=== PATIENT | female | born 1950 | race Caucasian/White ===

== ENCOUNTER 2019-10-26 15:42 | Inpatient (IN) ==
[2019-10-26] MEDS ORDERED: DILTIAZEM 25 MG/5 ML VIAL IV ONE (15:57)
--- NOTE | 2019-10-26 16:01 | Emergency Department Note ---
Arrhythmia/Palpitations HPI - General Chief Complaint: Arrhythmia/Palpitations Stated Complaint: irregular heart beat, cellulitis Time Seen by Provider: 10/26/19 15:57 Source: patient Mode of arrival: wheelchair Limitations: no limitations - History of Present Illness HPI Narrative: 69-year-old female presents with tachycardia, some mild shortness of breath with exertion, and significant pedal edema. States onset 6 days ago. She went to her primary care providers today because of the increasing edema but now goes all the way up to her abdomen and her primary care provider sent her to the ER due to a heart rate in the 140s in A. fib. States she has had A. fib off and on for the last 6 months. Does not believe that she is on any oral medications for it. She has however poor historian. No cough or cold symptoms. No fever or chills. No nausea, vomiting, or diarrhea. States she does not really get shortness of breath unless he is she exerts herself. She always has some pedal edema but it is much greater and increasing over the last 6 days and she is never had edema that so severe that it goes up to her abdomen. States she thinks she is gained about 50 pounds in the last week or 2. - Related Data Home Medications Medication Instructions Recorded Confirmed HYDROcodone/APAP 5/325MG 1 tab PO DAILY 10/26/19 10/26/19 Lisinopril 1 tab PO DAILY 10/26/19 10/26/19 traZODone HCL 50 mg PO HS 10/26/19 10/26/19 Allergies Allergy/AdvReac Type Severity Reaction Status Date / Time Sulfa (Sulfonamide Allergy Intermediate Unknown Verified 10/26/19 15:53 Antibiotics) No Known Allergies Allergy Verified 10/26/19 15:50 Review of Systems All systems ED: reviewed and negative except as stated. Past Medical History - Past Medical History Medical history: Reports: atrial fibrillation, CHF, obesity, other (Cellulitis, vaginal prolapse, short OH interval, PAC, long-term opioid therapy, peripheral vascular insufficiency, chronic peripheral edema) Surgical history ED: Reports: herniorrhaphy, tonsillectomy - Social History smoking status: Never smoker Alcohol use: Reports: Rarely Drug use: Reports: none Physical Exam Limitations: no limitations General appearance: alert, other (Speaking in full sentences. She does get short of breath with movement such as getting up to the bed.) Head: atraumatic, normocephalic, normal inspection Eye: Present: normal appearance. Absent: conjunctival injection ENT: Present: mucous membranes moist Neck: Present: normal inspection. Absent: trachea midline, tenderness, lymphadenopathy Chest: Present: symmetric chest wall rise Respiratory: Present: other (Lung sounds diminished in the bases bilaterally otherwise clear throughout). Absent: respiratory distress, rales/crackles, a ccessory muscle use Cardiovascular: Present: irregular rhythm, other (Atrial fibrillation in the 140s on arrival). Absent: systolic murmur, diastolic murmur Abdominal: Present: soft, normal bowel sounds, other (Edema throughout the lower part of the abdomen and extending into the legs.). Absent: tenderness, guarding Extremities: Absent: normal inspection (2+ pitting edema throughout the lower extremities bilaterally extending up into the lower abdomen) Neurological: Present: alert, oriented X3 Psychiatric: Present: normal affect, normal mood Skin: Present: warm, dry, intact Course Course Narrative: @1640, no change with cardizem bolus of 20 mg. rate still 130s to 140s a-fib. Cardizem drip started. and 40 mg lasix iv @1745 Dr. Peters agrees to accept pt. Vital Signs Temperature 97.8 F 10/26/19 15:43 Pulse Rate 146 H 10/26/19 15:43 Respiratory Rate 25 H 10/26/19 15:43 Blood Pressure 142/116 10/26/19 15:43 Pulse Oximetry (%) 97 10/26/19 15:43 Temperature 97.8 F 10/26/19 15:43 Pulse Rate 122 H 10/26/19 17:16 Respiratory Rate 16 10/26/19 17:16 Blood Pressure 116/67 10/26/19 17:16 Pulse Oximetry (%) 98 10/26/19 17:16 Arrhythmia/Palpitations - Lab Data Result diagrams: 10/26/19 16:05 10/26/19 16:05 Lab Results 10/26/19 10/26/19 10/26/19 Range/Units 16:05 16:05 16:05 WBC 6.7 (4.50-11.00) K/mcL RBC 3.78 (3.59-5.38) M/mcL Hgb 12.2 (11.2-15.7) g/dL Hct 36.2 (34.1-44.9) % POC Hct 37.0 (36.0-48.0) % MCV 95.8 (80.0-100.0) fL MCH 32.3 (26.0-34.0) pg MCHC 33.7 (31.0-36.0) g/dL RDW 15.9 H (11.5-14.5) % Plt Count 127 L (140-440) K/mcL MPV 11.7 H (7.4-10.4) fL Gran % 54.0 (38.0-78.0) % Lymph % (Auto) 29.5 (15.5-49.0) % [place] % (Auto) 15.8 H (1.0-12.0) % Eos % (Auto) 0.3 (0.0-7.0) % Baso % (Auto) 0.4 (0.0-2.0) % Gran # 3.63 (1.80-8.00) K/mcL Lymph # (Auto) 1.98 (1.50-4.80) K/mcL [place] # (Auto) 1.06 H (0.10-0.90) K/mcL Eos # (Auto) 0.02 (0.00-0.70) K/mcL Baso # (Auto) 0.03 (0.00-0.30) K/mcL POC Sodium 138 (133-145) mmol/L Sodium 136 (133-145) mmol/L POC Potassium 3.4 (3.3-5.1) mmol/L Potassium 3.5 (3.3-5.1) mmol/L POC Chloride 100 (96-108) mmol/L Chloride 97 (96-108) mmol/L Carbon Dioxide 23 (22-30) mmol/L POC Total CO2 25 (22-30) mmol/L Anion Gap 16.0 (8-16) POC BUN 20 (8-23) mg/dl BUN 20 (8-23) mg/dl Creatinine 0.9 (0.6-1.1) mg/dl POC Creatinine 0.8 (0.6-1.1) mg/dl GFR Calculation 65 Glucose 125 H (70-105) mg/dL POC Glucose 123 H (70-105) mg/dL Calcium 9.0 (8.6-10.4) mg/dl POC WB Ioniz Calcium 1.06 L (1.16-1.32) mmol/L Total Bilirubin 0.9 (0.0-1.0) mg/dL AST 27 (0-37) U/l ALT 15 (0-40) U/l Alkaline Phosphatase 66 (39-117) U/L Troponin T < 0.01 (0-0.03) ng/ml NT-Pro-B Natriuret Pep 3573.0 H (0-125) pg/ml Total Protein 6.8 (5.9-8.4) gm/dL Albumin 3.6 (3.2-5.2) gm/dL Globulin 3.2 (2.2-3.7) gm/dL Albumin/Globulin Ratio 1.1 (1.0-2.3) Disposition Pt seen by GEOMAGNETICIAN/PA only: No Clinical Impression: Atrial fibrillation, Pedal edema, Bilateral lower extremity edema Disposition: Xfer As Inpt ([facility]) Condition: Fair Referrals: Yvonne Leonardo ARNP [Primary Care Provider] - Time of Disposition: 00:12
[2019-10-26 16:11] LABS: POC Blood Urea Nitrogen 20 mg/dl (8-23); POC CO2 25 mmol/L (22-30); POC Calcium, Ionized 1.06 mmol/L (1.16-1.32); POC Chloride 100 mmol/L (96-108); POC Creatinine 0.8 mg/dl (0.6-1.1); POC Glucose, Random 123 mg/dL (70-105); POC Potassium 3.4 mmol/L (3.3-5.1); POC Sodium 138 mmol/L (133-145)
--- NOTE | 2019-10-26 16:14 | XRay Report ---
CLINICAL INFORMATION:Dysrhythmia TECHNIQUE: AP portable semiupright chest x-ray COMPARISON: None FINDINGS: Lungs:Lungs are negative. No focal pulmonary parenchymal infiltrate or mass Heart, vascular:There is cardiomegaly. Pulmonary vascularity is normal. No pulmonary edema or pulmonary congestion Mediastinum, imchael:No mediastinal widening. No hilar mass Pleura:No pleural fluid. No pleural-based mass or calcification Skeletal: Degenerative disease in the acromioclavicular joints bilaterally. There is severe descent during of both humeral heads consistent with rotator cuff degeneration IMPRESSION: 1. Cardiomegaly 2. Otherwise negative chest x-ray. No acute abnormality Interpreted and Authenticated by: Joe Ruby 10/26/19
[2019-10-26 16:31] LABS: Basophils # (Auto) 0.03 K/mcL (0.00-0.30); Basophils % (Auto) 0.4 % (0.0-2.0); Eosinophils # (Auto) 0.02 K/mcL (0.00-0.70); Eosinophils % (Auto) 0.3 % (0.0-7.0); Hematocrit 36.2 % (34.1-44.9); Hemoglobin 12.2 g/dL (11.2-15.7); Lymphocytes # (Auto) 1.98 K/mcL (1.50-4.80); Lymphocytes % (Auto) 29.5 % (15.5-49.0); Mean Cell Volume 95.8 fL (80.0-100.0); Mean Corpuscular HGB Conc 33.7 g/dL (31.0-36.0); Mean Platelet Volume 11.7 fL (7.4-10.4); Monocytes # (Auto) 1.06 K/mcL (0.10-0.90); Monocytes % (Auto) 15.8 % (1.0-12.0); RBC 3.78 M/mcL (3.59-5.38); Red Cell Distribution Width 15.9 % (11.5-14.5); WBC 6.7 K/mcL (4.50-11.00)
[2019-10-26] MEDS ORDERED: FUROSEMIDE 40 MG/4 ML VIAL IV ONE ×2 (16:39→22:49)
[2019-10-26] MEDS ORDERED: DILTIAZEM 125 MG in DEXTROSE 5% IN WATER 100 ML IV SCH (16:45)
[2019-10-26 16:50] LABS: ALT/SGPT 15 U/l (0-40); AST/SGOT 27 U/l (0-37); Albumin 3.6 gm/dL (3.2-5.2); Albumin/Globulin Ratio 1.1 (1.0-2.3); Alkaline Phosphatase 66 U/L (39-117); Bilirubin,Total 0.9 mg/dL (0.0-1.0); Blood Urea Nitrogen 20 mg/dl (8-23); Carbon Dioxide 23 mmol/L (22-30); Chloride 97 mmol/L (96-108); Globulin 3.2 gm/dL (2.2-3.7); Glomerular Filtration Rate 65; Glucose 125 mg/dL (70-105)
[2019-10-26] MEDS ORDERED: LORazepam 2 MG/ML VIAL IV ONE (17:06)
[2019-10-26 17:20] LABS: Platelet Count 127 K/mcL (140-440)
--- NOTE | 2019-10-26 17:45 | Internal Med History&Physical ---
Medical - H&P: [facility] Patient information: Note initiated : 10/26/19 at 5:45 pm Service Date, if different from initiated Date: [] Patient: Jessie Khan a 69 y/o F admitted on for Irregular Heart Beat, Cellulitis. Chief Complaint: [] Chief complaint: + History of present illness: Ms. Khan is a 69 year old F with history of morbid obesity/HTN/anasarca who presents with increasing shortness of breath, weakness malaise and over 50 pound weight gain in the last 4 to 5 weeks. Patient symptoms have progressed from dyspnea on exertion to dyspnea at rest. With increasing concerns she was e valuated at primary care physician office and was subsequently directed to ER for further evaluation of anasarca/atrial fibrillation with heart rate over 140. On arrival patient was found to be in A. fib RVR and subsequently diltiazem drip was initiated. Work-up was consistent with CHF with a BNP of 3573/anasarca. Hospital service was consulted in light of A. fib RVR/CHF. Patient BMI 65. She lives along with her brother and has been independent until development of the symptoms over the last 5 weeks. She denies travel outside night states, sick contacts, excessive salt intake, NSAID intake. She denies missing her regular medications. She was recently started on Lasix and has taken 2 doses without relief. She denies fever, diarrhea, dysuria, headache, photophobia, cough, palpitations Review of systems 10 point review system was performed and is negative except for ones cussed above Medical - H&P: PMH Medical history: Hypertension Morbid obesity Anasarca Venous stasis Pertinent family history: Nonremarkable Social history: No history of smoking or alcoholism Lives with brother Medical - H&P: Meds Home Medications Medication Instructions Recorded Confirmed Type Furosemide [Lasix] 20 mg PO DAILY 10/26/19 10/26/19 History HYDROcodone/APAP 5/325MG [[place] 2 tab PO QHS 10/26/19 10/26/19 History 5-325Mg] Lisinopril/Hydrochlorothiazide 1 each PO QAM 10/26/19 10/26/19 History [Lisinopril-Hctz 20-12.5 mg Tab] Potassium Chloride [Klor-Con M20] 20 meq PO QAM 10/26/19 10/26/19 History traZODone HCL [Desyrel] 4 tab PO HSP PRN 10/26/19 10/26/19 History Allergies Allergy/AdvReac Type Severity Reaction Status Date / Time Sulfa (Sulfonamide Allergy Intermediate Unknown Verified 10/26/19 15:53 Antibiotics) No Known Allergies Allergy Verified 10/26/19 15:50 Medical - H&P: Exam - Constitutional Vitals: Temp Pulse Resp BP Pulse Ox 97.8 F 122 H 16 116/67 98 10/26/19 15:43 10/26/19 17:16 10/26/19 17:16 10/26/19 17:16 10/26/19 17:16 General appearance: morbidly obese Exam: Head normocephalic Oral cavity dry No ear nose discharge Neck no lymphadenopathy Nonlabored breathing Telemetry A. fib RVR currently rate around 110 abdomen pendulous/extensive pannus Lower extremity lymphedema from foot up to mid thigh with significant stasis changes mid leg downwards Skin no suspicious lesion Psych alert cooperative Neuro nonfocal Medical - H&P: Reslt - Labs CBC & Chem 7: 10/26/19 16:05 10/26/19 16:05 Labs: Short CBC 10/26/19 Range/Units 16:05 WBC 6.7 (4.50-11.00) K/mcL Hgb 12.2 (11.2-15.7) g/dL Hct 36.2 (34.1-44.9) % Plt Count 127 L (140-440) K/mcL BMP 10/26/19 16:05 Sodium 136 Potassium 3.5 Chloride 97 Carbon Dioxide 23 BUN 20 Creatinine 0.9 Glucose 125 H Calcium 9.0 Cardiac Enzymes 10/26/19 Range/Units 16:05 Troponin T < 0.01 (0-0.03) ng/ml Liver Function 10/26/19 Range/Units 16:05 Total Bilirubin 0.9 (0.0-1.0) mg/dL AST 27 (0-37) U/l ALT 15 (0-40) U/l Alkaline Phosphatase 66 (39-117) U/L Albumin 3.6 (3.2-5.2) gm/dL Medical - H&P: A/P (1) Atrial fibrillation with RVR Current visit: Yes Status: Acute * Atrial fibrillation with RVR-continue rate control measures including diltiazem. Chads score over 2 mandating anticoagulation. Transition to oral rate control measures. Check echocardiogram to evaluate chamber size/valvular abnormality * Acute decompensated heart failure secondary to diastolic dysfunction from A. fib RVR. Aggressive rate control/diuresis * Anasarca-aggressive diuresis. Echocardiogram * History of hypertension restart home medications * Morbid obesity continue directed therapy/nutrition support * Full code * Prophylaxis heparin Plan * Inpatient admission * Rate control measures * CHF management per protocol * Pre-existing medical condition management home meds * Discharge planning
[2019-10-26 19:34] LABS: Appearance,Urine CLEAR; Bacteria,Urine 0 /hpf (0); Bilirubin,Urine NEG (NEG); Color,Urine YELLOW; Culture Indicated,Urine NO; Glucose,Urine (UA) NEGATIVE (NEG); Ketones,Urine NEG (NEG); Leukocyte Esterase,Urine 25 /uL (NEG); Mucus,Urine FEW /hpf (0); Nitrate,Urine NEG (NEG); Protein,Urine 30 mg/dL (NEG); Specific Gravity,Urine 1.011 (1.000-1.035); Urine Blood NEG mg/dL (<0.03); Urine Hyaline Cast 7 /lpf (0-2); Urine RBC 1 /hpf (0-1); Urine Squamous Epithelial Cell 2 /hpf (0-4); Urine WBC 3 /hpf (0-4); Urobilinogen,Urine NEG (NEG)
[2019-10-26] MEDS ORDERED: MAGNESIUM SULFATE 2 GM/50 ML BAG IV PRN (19:36)
[2019-10-26] MEDS ORDERED: BISACODYL 10 MG SUPP.RECT PR PRN (19:36)
[2019-10-26] MEDS ORDERED: MELATONIN 3 MG TABLET PO PRN (19:36)
[2019-10-26] MEDS ORDERED: ACETAMINOPHEN 650 MG/65 ML BOTTLE IV PRN (19:36)
[2019-10-26] MEDS ORDERED: ONDANSETRON 4 MG ODT TABLET SL PRN (19:36)
[2019-10-26] MEDS ORDERED: ACETAMINOPHEN 325 MG TABLET PO PRN (19:36)
[2019-10-26] MEDS ORDERED: POTASSIUM CHLORIDE 20 MEQ PACKET PO PRN (19:36)
[2019-10-26] MEDS ORDERED: ONDANSETRON 4 MG/2 ML VIAL IV PRN (19:36)
[2019-10-26] MEDS ORDERED: METOPROLOL TARTRATE 5 MG/5 ML VIAL IV PRN (19:36)
[2019-10-26] MEDS ORDERED: TRAZODONE HCL 50 MG PO SCH (21:00)
[2019-10-26] MEDS ORDERED: HYDROcodone/APAP 5/325MG TABLET PO SCH (21:00)
[2019-10-26] MEDS: SENNOSIDES/DOCUSATE SODIUM 1 TAB TABLET PO SCH (21:12)
[2019-10-26] MEDS: DOCUSATE SODIUM 100 MG CAPSULE PO SCH (21:12)
[2019-10-26] MEDS: HEPARIN 5,000 UNIT/ML VIAL SQ SCH (21:23)
[2019-10-26] MEDS ORDERED: traZODone HCL 50 MG TABLET ONE (22:49)
[2019-10-26] MEDS ORDERED: HYDROcodone/APAP 5/325MG TABLET PO ONE (22:49)
[2019-10-26] MEDS ORDERED: DILTIAZEM 30 MG TABLET ONE (22:54)
[2019-10-26] MEDS: FUROSEMIDE 40 MG/4 ML VIAL IV SCH (22:54)
[2019-10-26] MEDS: DILTIAZEM 30 MG TABLET PO SCH (22:54)
[2019-10-26] MEDS: 0.9 % SODIUM CHLORIDE 10 ML SYRINGE IV SCH (22:55)
[2019-10-27 01:02] LABS: Hemoglobin A1C 6.4 % HGB (4.0-6.0)
[2019-10-27] MEDS ORDERED: DILTIAZEM 125 MG in DEXTROSE 5% IN WATER 100 ML IV SCH (04:45)
[2019-10-27] MEDS ORDERED: DILTIAZEM 30 MG TABLET ONE (05:32)
[2019-10-27] MEDS: DILTIAZEM 30 MG TABLET PO SCH ×3 (05:34→21:35)
[2019-10-27] MEDS: 0.9 % SODIUM CHLORIDE 10 ML SYRINGE IV SCH ×4 (05:34→21:30)
[2019-10-27 06:30] LABS: Hematocrit 31.1 % (34.1-44.9); Hemoglobin 10.6 g/dL (11.2-15.7); Mean Cell Volume 96.6 fL (80.0-100.0); Mean Corpuscular HGB Conc 34.1 g/dL (31.0-36.0); Mean Platelet Volume 11.7 fL (7.4-10.4); Platelet Count 109 K/mcL (140-440); RBC 3.22 M/mcL (3.59-5.38); Red Cell Distribution Width 15.8 % (11.5-14.5); WBC 4.9 K/mcL (4.50-11.00)
[2019-10-27 06:50] LABS: ALT/SGPT 10 U/l (0-40); AST/SGOT 21 U/l (0-37); Albumin 2.8 gm/dL (3.2-5.2); Alkaline Phosphatase 53 U/L (39-117); Bilirubin,Direct 0.2 mg/dL (0.0-0.3); Bilirubin,Total 0.7 mg/dL (0.0-1.0); Blood Urea Nitrogen 16 mg/dl (8-23); Calcium 8.7 mg/dl (8.6-10.4); Carbon Dioxide 25 mmol/L (22-30); Chloride 101 mmol/L (96-108); Globulin 2.8 gm/dL (2.2-3.7); Glomerular Filtration Rate 88; Glucose 99 mg/dL (70-105); Lactate Dehydrogenase 211 U/L (94-250); Phosphorous 4.1 mg/dL (2.7-4.5); Uric Acid 7.2 mg/dL (2.5-8.0)
[2019-10-27] MEDS: FUROSEMIDE 40 MG/4 ML VIAL IV SCH ×3 (07:05→21:34)
[2019-10-27 07:06] LABS: Triglycerides 28 mg/dl (<150)
[2019-10-27 07:23] LABS: Anisocytosis 1+ (NONE SEEN); Band Neutrophils % 1 % (0-10); Lymphocytes % 31 % (15-49); Monocytes % (Manual) 13 % (1-12); Platelet Estimate DECREASED (NORMAL); RBC Morphology ABNORM (NORMAL); Reactive Lymphocytes 6 % (0-2); Segmented Neutrophils % 49 % (38-78)
[2019-10-27] MEDS ORDERED: FUROSEMIDE 40 MG/4 ML VIAL IV SCH (08:00)
[2019-10-27] MEDS ORDERED: POTASSIUM CHLORIDE 20 MEQ TABLET PO ONE (08:05)
--- NOTE | 2019-10-27 08:06 | Internal Med Progress Note ---
Medical - PN: Subj Patient information: Note initiated : 10/27/19 at 8:03 am Service Date, if different from initiated Date: [] Patient: Jessie Khan 69 y/o F admitted on 10/26/19 for Irregular Heart Beat, Cellulitis. Chief Complaint: [] Interval history: Ms. Khan is a 69 year old F with history of morbid obesity/HTN/anasarca who presents with increasing shortness of breath, weakness malaise and over 50 pound weight gain in the last 4 to 5 weeks. Patient symptoms have progressed from dyspnea on exertion to dyspnea at rest. With increasing concerns she was evaluated at primary care physician office and was subsequently directed to ER for further evaluation of anasarca/atrial fibrillation with heart rate over 140. On arrival patient was found to be in A. fib RVR and subsequently diltiazem drip was initiated. Work-up was consistent with CHF with a BNP of 3573/anasarca. Hospital service was consulted in light of A. fib RVR/CHF. Patient BMI 65. She lives along with her brother and has been independent until development of the symptoms over the last 5 weeks. She denies travel outside night states, sick contacts, excessive salt intake, NSAID intake. She denies missing her regular medications. She was recently started on Lasix and has taken 2 doses without relief. She denies fever, diar laurent, dysuria, headache, photophobia, cough, palpitations 10/26-patient doing well. Improved shortness of breath. Diuresing well. Over 3000 cc net negative fluid balance with Lasix. Continue free water restriction. Echocardiogram pending. Atrial fibrillation overnight but rate controlled on diltiazem. Off diltiazem drip. Transition to oral diltiazem. Potassium at 3.3. Aggressive replacement. Dietary intervention. - Constitutional Vitals: Vital Signs Temp Pulse Resp BP Pulse Ox 98.4 F 100 H 17 118/65 97 10/27/19 06:26 10/27/19 07:30 10/27/19 07:30 10/27/19 07:30 10/27/19 07:30 Period Temp Pulse Resp BP Sys/Palmer Pulse Ox Last 24 Hr 97.6 F-98.4 F 76-164 12-38 85-164/48-130 68-100 Intake and Output 10/26/19 10/27/19 10/27/19 21:59 05:59 13:59 Intake Total 33 416 60 Output Total 175 1900 250 Balance -142 -1484 -190 Weight 343 lb 8 oz Intake & Output: Intake & Output 10/26/19 10/27/19 10/27/19 21:59 05:59 13:59 Intake Total 33 416 60 Output Total 175 1900 250 Balance -142 -1484 -190 Weight 343 lb 8 oz Intake: IV 33 56 Cardizem 125 mg In Dextrose 5% 33 56 in Water 100 ml @ 5 MG/HR 5 mls /hr IV Q12H ABBE Rx#:[id number] Oral 360 60 Output: Urine Catheter Amount 1900 250 Void Amount 175 Other: Meal Dinner Percent of Meal Consumed 100% Feeding Ability Assist with Tray Set Up Urine Appearance Clear Clear Uretheral ([place]) Clear Clear Urine Color Dark Yellow Bright Yellow Bright Yellow Uretheral ([place]) Bright Yellow Bright Yellow Urine Odor Normal Uretheral ([place]) Normal Stool Size Moderate Stool Color Brown Stool Consistency Dry and Hard [place] # Bowel Movements 1 Exam: Morbidly obese Alert oriented Nonlabored breathing Anasarca Stasis dermatitis Medical - PN: Obj Da - Labs CBC & Chem 7: 10/27/19 05:00 10/27/19 05:00 Labs: Abnormal Lab Results 10/27/19 10/27/19 10/26/19 05:00 05:00 16:45 RBC 3.22 L Hgb 10.6 L Hct 31.1 L RDW 15.8 H Plt Count 109 L MPV 11.7 H [place] % (Auto) [place] # (Auto) Monocytes % (Manual) 13 H Reactive Lymphocytes 6 H RBC Morphology Abnorm A Anisocytosis 1+ A Glucose POC Glucose Hemoglobin A1c POC WB Ioniz Calcium NT-Pro-B Natriuret Pep Total Protein 5.6 L Albumin 2.8 L Urine Protein 30 A Ur Leukocyte Esterase 25 A Hyaline Casts 7 H 10/26/19 10/26/19 10/26/19 16:05 16:05 16:05 RBC Hgb Hct RDW 15.9 H Plt Count 127 L MPV 11.7 H [place] % (Auto) 15.8 H [place] # (Auto) 1.06 H Monocytes % (Manual) Reactive Lymphocytes RBC Morphology Anisocytosis Glucose 125 H POC Glucose 123 H Hemoglobin A1c 6.4 H POC WB Ioniz Calcium 1.06 L NT-Pro-B Natriuret Pep 3573.0 H Total Protein Albumin Urine Protein Ur Leukocyte Esterase Hyaline Casts Meds: Medications Acetaminophen (Tylenol) 650 mg PO Q4-6HP PRN; Protocol PRN Reason: Per Pain Protocol/Fever > 101 Last Admin: 10/27/19 07:47 Dose: 650 mg Documented by: Hydrocodone Bitart/Acetaminophen ([place] 5/325mg) 2 tab PO QHS [facility]; Protocol Last Admin: 10/26/19 22:54 Dose: 2 tab Documented by: Bisacodyl (Dulcolax) 10 mg OR Q2-3DAYS PRN PRN Reason: Constipation Diltiazem HCl (Cardizem) 60 mg PO Q8 [facility] Last Admin: 10/27/19 05:34 Dose: 60 mg Documented by: Docusate Sodium (Colace) 100 mg PO BID [facility] Last Admin: 10/26/19 21:12 Dose: Not Given Documented by: Furosemide (Lasix) 40 mg IV Q8 [facility] Last Admin: 10/27/19 07:05 Dose: 40 mg Documented by: Heparin Sodium (Porcine) (Heparin) 5,000 unit SQ Q12 ABBE Last Admin: 10/26/19 21:23 Dose: 5,000 unit Documented by: Diltiazem HCl 125 mg/ Dextrose 125 mls @ 5 mls/hr IV Q12H [facility]; Protocol Last Admin: 10/27/19 05:34 Dose: Not Given Documented by: Acetaminophen (Ofirmev) 650 mg in 65 mls @ 130 mls/hr IV Q6HP PRN; Protocol PRN Reason: Per Pain Protocol/Fever > 101 Magnesium Sulfate (Magnesium Sulfate) 2 gm in 50 mls @ 50 mls/hr IV UD PRN PRN Reason: MG = or < 1.7 Iron Carb/Multivit/Bennett/Folic Acid (Multivitamin W/Minerals) 1 tab PO DAILY [facility] Melatonin (Melatonin 3mg Tablet) 3 mg PO HSP PRN PRN Reason: Insomnia Last Admin: 10/26/19 21:23 Dose: 3 mg Documented by: Metoprolol Tartrate (Lopressor) 5 mg IV Q5M PRN PRN Reason: Heart Rate > 140 bpm Non-Formulary Medication (Lisinopril) 1 tab PO DAILY [facility] Non-Formulary Medication (Hydrocodone/Apap 5/325mg) 1 tab PO DAILY [facility] Non-Formulary Medication (Trazodone Hcl) 50 mg PO HS [facility] Last Admin: 10/26/19 22:55 Dose: Not Given Documented by: Ondansetron HCl (Zofran Odt) 4 mg SL Q4-6HP PRN; Protocol PRN Reason: Nausea And Vomiting Ondansetron HCl (Zofran) 4 mg IV Q4-6HP PRN; Protocol PRN Reason: Nausea And Vomiting Polyethylene Glycol (Miralax) 17 gm PO DAILYP PRN PRN Reason: Constipation Potassium Chloride (Klor-Con) 40 meq PO DAILYP PRN PRN Reason: K+ < 3.5 Senna/Docusate Sodium (Senna Plus Tablet) 1 tab PO [facility] Last Admin: 10/26/19 21:12 Dose: Not Given Documented by: Sodium Chloride (Saline Flush) 10 ml IV Q8 [facility] Last Admin: 10/27/19 07:05 Dose: 10 ml Documented by: Medical - PN: A/P - Time Spent With Patient Total time spent is greater than 50% in coordination of care (as documented) at patient's floor/unit and/or counseling patient: 25 - 35 minutes (1) Atrial fibrillation with RVR Status: Acute Assessment and plan: * Atrial fibrillation with RVR-improved rate control diltiazem drip. Currently transition to oral diltiazem. Await echocardiogram. Chads score over 2 mandating anticoagulation. * Acute decompensated heart failure secondary to diastolic dysfunction from A. fib RVR. Clinically improving with rate control and diuresis. * Anasarca-responding to diuretics * Hypokalemia secondary diuretics. Aggressive replacement * History of hypertension continue home medications * Morbid obesity continue directed therapy/nutrition support * Full code * Prophylaxis heparin Plan * Telemetry monitoring * Oral diltiazem * Potassium replacement * Optimize CHF management based on echo findings * Pre-existing medical condition management home meds * Discharge planning per case management Current Visit: Yes Medical - PN: Qual - VTE Deep Vein Thrombosis/Pulmonary Embolism Present on Admission: No
[2019-10-27] MEDS: MULTIVIT,THER IRON,CA,FA & MIN 1 TABLET PO SCH (08:45)
[2019-10-27] MEDS: HEPARIN 5,000 UNIT/ML VIAL SQ SCH ×2 (08:45→20:51)
[2019-10-27] MEDS: DOCUSATE SODIUM 100 MG CAPSULE PO SCH ×2 (08:45→20:51)
[2019-10-27] MEDS ORDERED: APAP PO SCH (09:00)
[2019-10-27] MEDS ORDERED: HYDROCODONE PO SCH (09:00)
[2019-10-27] MEDS: POTASSIUM CHLORIDE 20 MEQ TABLET PO SCH ×2 (09:04→17:07)
[2019-10-27] MEDS: HYDROCHLOROTHIAZIDE 12.5 MG CAPSULE PO SCH (09:04)
[2019-10-27] MEDS: LISINOPRIL 20 MG TABLET PO SCH (09:04)
[2019-10-27] MEDS ORDERED: DILTIAZEM 125 MG in DEXTROSE 5% IN WATER 100 ML IV PRN (13:00)
[2019-10-27] MEDS: HYDROcodone/APAP 5/325MG TABLET PO PRN ×2 (15:44→20:52)
[2019-10-27] MEDS ORDERED: traZODone HCL 50 MG TABLET ONE (20:37)
[2019-10-27] MEDS: SENNOSIDES/DOCUSATE SODIUM 1 TAB TABLET PO SCH (20:51)
[2019-10-27] MEDS: traZODone HCL 100 MG TABLET PO SCH (20:53)
[2019-10-27] MEDS ORDERED: traZODone HCL 50 MG TABLET PO SCH (21:00)
[2019-10-28] MEDS: FUROSEMIDE 40 MG/4 ML VIAL IV SCH ×3 (05:29→21:51)
[2019-10-28] MEDS: DILTIAZEM 30 MG TABLET PO SCH (05:29)
[2019-10-28] MEDS: 0.9 % SODIUM CHLORIDE 10 ML SYRINGE IV SCH ×5 (05:29→21:51)
[2019-10-28 06:20] LABS: Hematocrit 33.2 % (34.1-44.9); Hemoglobin 10.8 g/dL (11.2-15.7); Mean Cell Volume 96.2 fL (80.0-100.0); Mean Corpuscular HGB Conc 32.5 g/dL (31.0-36.0); Mean Platelet Volume 11.8 fL (7.4-10.4); Platelet Count 112 K/mcL (140-440); RBC 3.45 M/mcL (3.59-5.38); Red Cell Distribution Width 15.9 % (11.5-14.5)
[2019-10-28 07:06] LABS: ALT/SGPT 11 U/l (0-40); AST/SGOT 18 U/l (0-37); Albumin 2.9 gm/dL (3.2-5.2); Alkaline Phosphatase 52 U/L (39-117); Bilirubin,Direct 0.2 mg/dL (0.0-0.3); Bilirubin,Total 0.7 mg/dL (0.0-1.0); Blood Urea Nitrogen 16 mg/dl (8-23); Calcium 8.6 mg/dl (8.6-10.4); Carbon Dioxide 28 mmol/L (22-30); Chloride 102 mmol/L (96-108); Glomerular Filtration Rate 93; Glucose 95 mg/dL (70-105); Lactate Dehydrogenase 173 U/L (94-250); Phosphorous 3.7 mg/dL (2.7-4.5); Triglycerides 31 mg/dl (<150); Uric Acid 7.7 mg/dL (2.5-8.0)
[2019-10-28 07:13] LABS: Anisocytosis 1+ (NONE SEEN); Band Neutrophils % 1 % (0-10); Eosinophils % (Manual) 1 % (0-7); Lymphocytes % 34 % (15-49); Monocytes % (Manual) 15 % (1-12); Platelet Estimate DECREASED (NORMAL); RBC Morphology ABNORM (NORMAL); Segmented Neutrophils % 49 % (38-78)
[2019-10-28] MEDS: MULTIVIT,THER IRON,CA,FA & MIN 1 TABLET PO SCH (08:15)
[2019-10-28] MEDS: POTASSIUM CHLORIDE 20 MEQ TABLET PO SCH ×2 (08:15→17:11)
[2019-10-28] MEDS: DOCUSATE SODIUM 100 MG CAPSULE PO SCH ×2 (08:15→20:39)
[2019-10-28] MEDS: HEPARIN 5,000 UNIT/ML VIAL SQ SCH (08:16)
--- NOTE | 2019-10-28 08:19 | Internal Med Progress Note ---
Medical - PN: Subj Patient information: Note initiated : 10/28/19 at 8:16 am Service Date, if different from initiated Date: [] Patient: Jessie Khan a 69 y/o F admitted on 10/26/19 for Irregular Heart Beat, Cellulitis. Chief Complaint: [] Interval history: Ms. Khan is a 69 year old F with history of morbid obesity/HTN/anasarca who presents with increasing shortness of breath, weakness malaise and over 50 pound weight gain in the last 4 to 5 weeks. Patient symptoms have progressed from dyspnea on exertion to dyspnea at rest. With increasing concerns she was evaluated at primary care physician office and was subsequently directed to ER for further evaluation of anasarca/atrial fibrillation with heart rate over 140. On arrival patient was found to be in A. fib RVR and subsequently diltiazem drip was initiated. Work-up was consistent with CHF with a BNP of 3573/anasarca. Hospital service was consulted in light of A. fib RVR/CHF. Patient BMI 65. She lives along with her brother and has been independent until development of the symptoms over the last 5 weeks. She denies travel outside night states, sick contacts, excessive salt intake, NSAID intake. She denies missing her regular medications. She was recently started on Lasix and has taken 2 doses without relief. She denies fever, diar laurent, dysuria, headache, photophobia, cough, palpitations 10/26-patient doing well. Improved shortness of breath. Diuresing well. Over 3000 cc net negative fluid balance with Lasix. Continue free water restriction. Echocardiogram pending. Atrial fibrillation overnight but rate controlled on diltiazem. Off diltiazem drip. Transition to oral diltiazem. Potassium at 3.3. Aggressive replacement. Dietary intervention. 10/27-patient responded to diuretics. Over 4600 cc net negative. Add Diamox for 2 doses. Continue aggressive potassium replacement. EF 40% with evidence of mild pulmonary hypertension. Neo score over 2 mandating anticoagulation. Started on rivaroxaban after discussion patient. DC Cardizem and switch to extended release metoprolol. Continue DARLENE inhibitor. Uptitrate beta-buck to goal. No overnight RVR. Stable hemodynamics, vitals and labs. - Constitutional Vitals: Vital Signs Temp Pulse Resp BP Pulse Ox 99.3 F H 108 H 20 123/78 97 10/28/19 07:14 10/28/19 07:14 10/28/19 07:14 10/28/19 07:14 10/28/19 07:14 Period Temp Pulse Resp BP Sys/Palmer Pulse Ox Last 24 Hr 97.2 F-99.3 F 83-119 12-25 88-129/45-86 92-100 Intake and Output 10/27/19 10/28/19 10/28/19 21:59 05:59 13:59 Intake Total 300 300 Output Total 1875 1500 900 Balance -1575 -1200 -900 Weight 340 lb 5 oz Intake & Output: Intake & Output 10/27/19 10/28/19 10/28/19 21:59 05:59 13:59 Intake Total 300 300 Output Total 1875 1500 900 Balance -1575 -1200 -900 Weight 340 lb 5 oz Intake: Oral 300 300 Output: Urine Catheter Amount 1875 1500 900 Other: Meal Dinner Percent of Meal Consumed 100% Feeding Ability Independent Urine Appearance Sediment Clear Clear Uretheral ([place]) Cloudy Clear Sediment Urine Color Bright Yellow Dark Yellow Bright Yellow Uretheral ([place]) Bright Yellow Dark Yellow Urine Odor Normal Normal General appearance: morbidly obese Exam: Improving lymphedema No anxiety No telemetry event except for A. fib Nonlabored breathing Medical - PN: Obj Da - Labs CBC & Chem 7: 10/28/19 05:00 10/28/19 05:00 Labs: Abnormal Lab Results 10/28/19 10/28/19 10/27/19 05:00 05:00 05:00 WBC 4.0 L RBC 3.45 L Hgb 10.8 L Hct 33.2 L RDW 15.9 H Plt Count 112 L MPV 11.8 H [place] % (Auto) [place] # (Auto) Monocytes % (Manual) 15 H Reactive Lymphocytes RBC Morphology Abnorm A Anisocytosis 1+ A Glucose POC Glucose Hemoglobin A1c POC WB Ioniz Calcium NT-Pro-B Natriuret Pep Total Protein 5.6 L Albumin 2.9 L 2.8 L Urine Protein Ur Leukocyte Esterase Hyaline Casts 10/27/19 10/26/19 10/26/19 05:00 16:45 16:05 WBC RBC 3.22 L Hgb 10.6 L Hct 31.1 L RDW 15.8 H Plt Count 109 L MPV 11.7 H [place] % (Auto) [place] # (Auto) Monocytes % (Manual) 13 H Reactive Lymphocytes 6 H RBC Morphology Abnorm A Anisocytosis 1+ A Glucose POC Glucose Hemoglobin A1c 6.4 H POC WB Ioniz Calcium NT-Pro-B Natriuret Pep Total Protein Albumin Urine Protein 30 A Ur Leukocyte Esterase 25 A Hyaline Casts 7 H 10/26/19 10/26/19 16:05 16:05 WBC RBC Hgb Hct RDW 15.9 H Plt Count 127 L MPV 11.7 H [place] % (Auto) 15.8 H [place] # (Auto) 1.06 H Monocytes % (Manual) Reactive Lymphocytes RBC Morphology Anisocytosis Glucose 125 H POC Glucose 123 H Hemoglobin A1c POC WB Ioniz Calcium 1.06 L NT-Pro-B Natriuret Pep 3573.0 H Total Protein Albumin Urine Protein Ur Leukocyte Esterase Hyaline Casts Meds: Medications Acetaminophen (Tylenol) 650 mg PO Q4-6HP PRN; Protocol PRN Reason: Per Pain Protocol/Fever > 101 Last Admin: 10/27/19 07:47 Dose: 650 mg Documented by: Hydrocodone Bitart/Acetaminophen ([place] 5/325mg) 0 tab PO Q6HP PRN; Protocol PRN Reason: Pain Last Admin: 10/27/19 20:52 Dose: 2 tab Documented by: Acetazolamide Sodium (Diamox) 500 mg IV DAILY [facility] Stop: 10/29/19 09:01 Bisacodyl (Dulcolax) 10 mg ME Q2-3DAYS PRN PRN Reason: Constipation Docusate Sodium (Colace) 100 mg PO BID [facility] Last Admin: 10/28/19 08:15 Dose: 100 mg Documented by: Furosemide (Lasix) 40 mg IV Q8 [facility] Last Admin: 10/28/19 05:29 Dose: 40 mg Documented by: Hydrochlorothiazide (Oretic) 12.5 mg PO DAILY [facility] Last Admin: 10/27/19 09:04 Dose: Not Given Documented by: Acetaminophen (Ofirmev) 650 mg in 65 mls @ 130 mls/hr IV Q6HP PRN; Protocol PRN Reason: Per Pain Protocol/Fever > 101 Magnesium Sulfate (Magnesium Sulfate) 2 gm in 50 mls @ 50 mls/hr IV UD PRN PRN Reason: MG = or < 1.7 Last Admin: 10/28/19 07:46 Dose: 50 mls/hr Documented by: Diltiazem HCl 125 mg/ Dextrose 125 mls @ 5 mls/hr IV Q12HP PRN; Protocol PRN Reason: Tachyarrhythmias Iron Carb/Multivit/[place]/Folic Acid (Multivitamin W/Minerals) 1 tab PO DAILY [facility] Last Admin: 10/28/19 08:15 Dose: 1 tab Documented by: Lisinopril (Zestril) 20 mg PO DAILY [facility] Last Admin: 10/27/19 09:04 Dose: Not Given Documented by: Melatonin (Melatonin 3mg Tablet) 3 mg PO HSP PRN PRN Reason: Insomnia Metoprolol Succinate (Toprol Xl) 50 mg PO DAILY [facility] Metoprolol Tartrate (Lopressor) 5 mg IV Q5M PRN PRN Reason: Heart Rate > 140 bpm Ondansetron HCl (Zofran Odt) 4 mg SL Q4-6HP PRN; Protocol PRN Reason: Nausea And Vomiting Ondansetron HCl (Zofran) 4 mg IV Q4-6HP PRN; Protocol PRN Reason: Nausea And Vomiting Polyethylene Glycol (Miralax) 17 gm PO DAILYP PRN PRN Reason: Constipation Potassium Chloride (Klor-Con) 40 meq PO DAILYP PRN PRN Reason: K+ < 3.5 [facility] Stop: 10/30/19 17:31 Last Admin: 10/28/19 08:15 Dose: 20 meq Documented by: [facility]) [facility] Senna/Docusate Sodium (Senna Plus Tablet) 1 tab PO [facility] Last Admin: 10/27/19 20:51 Dose: 1 tab Documented by: Sodium Chloride (Saline Flush) 10 ml IV Q8 [facility] Last Admin: 10/28/19 07:47 Dose: 10 ml Documented by: Trazodone HCl (Desyrel) 200 mg PO [facility] Last Admin: 10/27/19 20:53 Dose: Not Given Documented by: Medical - PN: A/P - Time Spent With Patient Total time spent is greater than 50% in coordination of care (as documented) at patient's floor/unit and/or counseling patient: 25 - 35 minutes (1) Atrial fibrillation with RVR Status: Acute Assessment and plan: * Atrial fibrillation with RVR-EF 40%, moderate TR. Switch to externally beta- buck, and rivaroxaban for CVA prophylaxis. * Acute decompensated systolic heart failure noted on echo. Start extended- release beta-buck while continuing diuresis/DARLENE inhibitor. Uptitrate beta- buck to effect * Anasarca-responding to diuretics * Hypokalemia secondary diuretics. Continue oral replacement as indicated * History of hypertension continue DARLENE inhibitor/beta-buck * Morbid obesity continue directed therapy/nutrition support * Full code * Prophylaxis heparin Plan * Telemetry monitoring * Start oral extended-release beta-buck * Potassium replacement * Continue diuresis * Pre-existing medical condition management home meds * Discharge planning per case management Current Visit: Yes Medical - PN: Qual - VTE Deep Vein Thrombosis/Pulmonary Embolism Present on Admission: No
[2019-10-28] MEDS ORDERED: METOPROLOL SUCCINATE 50 MG TAB.XL.24H PO SCH (09:00)
[2019-10-28] MEDS: acetaZOLAMIDE SOD 500 MG VIAL IV SCH (09:03)
[2019-10-28] MEDS: LISINOPRIL 20 MG TABLET PO SCH (09:03)
--- NOTE | 2019-10-28 09:03 | XRay Report ---
INDICATION: Interval Change. Arrhythmia TECHNIQUE: AP portable semiupright chest x-ray COMPARISON: Previous examinations dated 10/26/2019, 07/08/2014 FINDINGS: Lungs:Lungs are negative. No focal pulmonary parenchymal infiltrate or mass Heart, vascular:Cardiomegaly, unchanged. No pulmonary edema. No definite pulmonary congestion Mediastinum, michael:No mediastinal widening. No hilar mass Pleura:No pleural fluid. No pleural-based mass or calcification No acute abnormality. No significant interval change since 10/26/2019 IMPRESSION: 1. Cardiomegaly. No evidence for congestive heart failure 2. No focal pulmonary parenchymal infiltrate or mass 3. No interval change Interpreted and Authenticated by: Joe Ruby 10/28/19
[2019-10-28] MEDS: HYDROcodone/APAP 5/325MG TABLET PO PRN ×2 (11:09→18:33)
[2019-10-28] MEDS: HYDROCHLOROTHIAZIDE 12.5 MG CAPSULE PO SCH (11:52)
--- NOTE | 2019-10-28 14:28 | Internal Med Progress Note ---
Medical - PN: Subj Patient information: Note initiated : 10/28/19 at 2:19 pm Service Date, if different from initiated Date: [] Patient: Jessie Khan a 69 y/o F admitted on 10/26/19 for Irregular Heart Beat, Cellulitis. Chief Complaint: [] Interval history: Ms. Khan is a 69 year old F with history of morbid obesity/HTN/anasarca who presents with increasing shortness of breath, weakness malaise and over 50 pound weight gain in the last 4 to 5 weeks. Patient symptoms have progressed from dyspnea on exertion to dyspnea at rest. With increasing concerns she was evaluated at primary care physician office and was subsequently directed to ER for further evaluation of anasarca/atrial fibrillation with heart rate over 140. On arrival patient was found to be in A. fib RVR and subsequently diltiazem drip was initiated. Work-up was consistent with CHF with a BNP of 3573/anasarca. Hospital service was consulted in light of A. fib RVR/CHF. Patient BMI 65. She lives along with her brother and has been independent until development of the symptoms over the last 5 weeks. She denies travel outside night states, sick contacts, excessive salt intake, NSAID intake. She denies missing her regular medications. She was recently started on Lasix and has taken 2 doses without relief. She denies fever, diar laurent, dysuria, headache, photophobia, cough, palpitations 10/26-patient doing well. Improved shortness of breath. Diuresing well. Over 3000 cc net negative fluid balance with Lasix. Continue free water restriction. Echocardiogram pending. Atrial fibrillation overnight but rate controlled on diltiazem. Off diltiazem drip. Transition to oral diltiazem. Potassium at 3.3. Aggressive replacement. Dietary intervention. 10/27-patient responded to diuretics. Over 4600 cc net negative. Add Diamox for 2 doses. Continue aggressive potassium replacement. EF 40% with evidence of mild pulmonary hypertension. Neo score over 2 mandating anticoagulation. Started on rivaroxaban after discussion patient. DC Cardizem and switch to extended release metoprolol. Continue DARLENE inhibitor. Uptitrate beta-buck to goal. No overnight RVR. Stable hemodynamics, vitals and labs. 10/28 - Constitutional Vitals: Vital Signs Temp Pulse Resp BP Pulse Ox 99.3 F H 100 H 12 103/72 94 10/28/19 12:00 10/28/19 10:01 10/28/19 12:00 10/28/19 12:00 10/28/19 12:00 Period Temp Pulse Resp BP Sys/[place]mer Pulse Ox Last 24 Hr 97.2 F-99.3 F 83-119 12-25 98-129/64-88 92-100 Intake and Output 10/28/19 10/28/19 10/28/19 05:59 13:59 21:59 Intake Total 300 690 Output Total 1500 2275 Balance -1200 -1585 Intake & Output: Intake & Output 10/28/19 10/28/19 10/28/19 05:59 13:59 21:59 Intake Total 300 690 Output Total 1500 2275 Balance -1200 -1585 Intake: IV 50 Oral 300 640 Output: Urine Catheter Amount 1500 2275 Other: Meal Lunch Percent of Meal Consumed 100% Feeding Ability Independent Urine Appearance Clear Clear Uretheral ([place]) Clear Clear Urine Color Dark Yellow Bright Yellow Uretheral ([place]) Dark Yellow Bright Yellow Urine Odor Normal Exam: General: Alert, Awake, No acute Distress, obese Eyes/N/T: EOMI, PERRL, Head/Neck: neck supple, CV: irreg irreg, No murmurs, Pulm: no wheezing Abd: soft, nontender, +BS x4 Ext: no clubbing/cyanosis, + b/l LE edema Neuro: Alert, no focal deficits, moves all extremities, Skin: warm/dry Medical - PN: Obj Da - Labs CBC & Chem 7: 10/28/19 05:00 10/28/19 05:00 Labs: Abnormal Lab Results 10/28/19 10/28/19 10/27/19 05:00 05:00 05:00 WBC 4.0 L RBC 3.45 L Hgb 10.8 L Hct 33.2 L RDW 15.9 H Plt Count 112 L MPV 11.8 H [place] % (Auto) [place] # (Auto) Monocytes % (Manual) 15 H Reactive Lymphocytes RBC Morphology Abnorm A Anisocytosis 1+ A Glucose POC Glucose Hemoglobin A1c POC WB Ioniz Calcium NT-Pro-B Natriuret Pep Total Protein 5.6 L Albumin 2.9 L 2.8 L Urine Protein Ur Leukocyte Esterase Hyaline Casts 10/27/19 10/26/19 10/26/19 05:00 16:45 16:05 WBC RBC 3.22 L Hgb 10.6 L Hct 31.1 L RDW 15.8 H Plt Count 109 L MPV 11.7 H [place] % (Auto) [place] # (Auto) Monocytes % (Manual) 13 H Reactive Lymphocytes 6 H RBC Morphology Abnorm A Anisocytosis 1+ A Glucose POC Glucose Hemoglobin A1c 6.4 H POC WB Ioniz Calcium NT-Pro-B Natriuret Pep Total Protein Albumin Urine Protein 30 A Ur Leukocyte Esterase 25 A Hyaline Casts 7 H 10/26/19 10/26/19 16:05 16:05 WBC RBC Hgb Hct RDW 15.9 H Plt Count 127 L MPV 11.7 H [place] % (Auto) 15.8 H [place] # (Auto) 1.06 H Monocytes % (Manual) Reactive Lymphocytes RBC Morphology Anisocytosis Glucose 125 H POC Glucose 123 H Hemoglobin A1c POC WB Ioniz Calcium 1.06 L NT-Pro-B Natriuret Pep 3573.0 H Total Protein Albumin Urine Protein Ur Leukocyte Esterase Hyaline Casts Meds: Medications Acetaminophen (Tylenol) 650 mg PO Q4-6HP PRN; Protocol PRN Reason: Per Pain Protocol/Fever > 101 Last Admin: 10/27/19 07:47 Dose: 650 mg Documented by: Hydrocodone Bitart/Acetaminophen ([place] 5/325mg) 0 tab PO Q6HP PRN; Protocol PRN Reason: Pain Last Admin: 10/28/19 11:09 Dose: 1 tab Documented by: Acetazolamide Sodium (Diamox) 500 mg IV DAILY [facility] Stop: 10/29/19 09:01 Last Admin: 10/28/19 09:03 Dose: 500 mg Documented by: Bisacodyl (Dulcolax) 10 mg DC Q2-3DAYS PRN PRN Reason: Constipation Docusate Sodium (Colace) 100 mg PO BID [facility] Last Admin: 10/28/19 08:15 Dose: 100 mg Documented by: Furosemide (Lasix) 40 mg IV Q8 [facility] Last Admin: 10/28/19 05:29 Dose: 40 mg Documented by: Hydrochlorothiazide ([place]ret[place]) 12.5 mg PO DAILY [facility] Last Admin: 10/28/19 11:52 Dose: Not Given Documented by: Acetaminophen (Ofirmev) 650 mg in 65 mls @ 130 mls/hr IV Q6HP PRN; Protocol PRN Reason: Per Pain Protocol/Fever > 101 Magnesium Sulfate (Magnesium Sulfate) 2 gm in 50 mls @ 50 mls/hr IV UD PRN PRN Reason: MG = or < 1.7 Last Infusion: 10/28/19 09:23 Dose: Infused Documented by: Diltiazem HCl 125 mg/ Dextrose 125 mls @ 5 mls/hr IV Q12HP PRN; Protocol PRN Reason: Tachyarrhythmias Iron Carb/Multivit/[place]/Folic Acid (Multivitamin W/Minerals) 1 tab PO DAILY [facility] Last Admin: 10/28/19 08:15 Dose: 1 tab Documented by: Lisinopril (Zestril) 20 mg PO DAILY [facility] Last Admin: 10/28/19 09:03 Dose: 20 mg Documented by: Melatonin (Melatonin 3mg Tablet) 3 mg PO HSP PRN PRN Reason: Insomnia Metoprolol Succinate (Toprol Xl) 50 mg PO DAILY [facility] Last Admin: 10/28/19 09:02 Dose: 50 mg Documented by: Metoprolol Tartrate (Lopressor) 5 mg IV Q5M PRN PRN Reason: Heart Rate > 140 bpm Ondansetron HCl (Zofran Odt) 4 mg SL Q4-6HP PRN; Protocol PRN Reason: Nausea And Vomiting Ondansetron HCl (Zofran) 4 mg IV Q4-6HP PRN; Protocol PRN Reason: Nausea And Vomiting Polyethylene Glycol (Miralax) 17 gm PO DAILYP PRN PRN Reason: Constipation Potassium Chloride (Klor-Con) 40 meq PO DAILYP PRN PRN Reason: K+ < 3.5 Potassium Ch[facility] (K[facility]ur) [facility] Stop: 10/30/19 17:31 Last Admin: 10/28/19 08:15 Dose: 20 meq Documented by: Rivaroxaban ([facility]to) [facility] Senna/Docusate Sodium (Senna Plus Tablet) 1 tab PO [facility] Last Admin: 10/27/19 20:51 Dose: 1 tab Documented by: Sodium Chloride (Saline Flush) 10 ml IV Q8 [facility] Last Admin: 10/28/19 09:03 Dose: 10 ml Documented by: Trazodone HCl (Desyrel) 200 mg PO [facility] Last Admin: 10/27/19 20:53 Dose: Not Given Documented by: Medical - PN: A/P - Time Spent With Patient Total time spent is greater than 50% in coordination of care (as documented) at patient's floor/unit and/or counseling patient: - Narrative A/P Narrative: A: *AFib RVR: *Acute decompensated systolic/diastolic CHF: -echo EF 40%, mod MR/TR, mod Pulm HTN, diastolic dysfxn *Anasarca: responding to diuretics *Hypokalemia: 2/2 diuretics. *HTN: *Morbid obesity: Plan: -Telemetry monitoring -cont IV lasix, cont home hctz -cont home Lisinopril -Start oral extended-release beta-buck. Uptitrate beta-buck to effect -Rivaroxaban for CVA prophylaxis. -Potassium replacement -Continue diuresis -pt/ot -f/u with cardiology outpt. -ppx: heparin full code Medical - PN: Qual - VTE Deep Vein Thrombosis/Pulmonary Embolism Present on Admission: No
[2019-10-28] MEDS: RIVAROXABAN 15 MG TABLET PO SCH (17:11)
[2019-10-28] MEDS: SENNOSIDES/DOCUSATE SODIUM 1 TAB TABLET PO SCH (20:39)
[2019-10-28] MEDS: traZODone HCL 100 MG TABLET PO SCH (20:39)
[2019-10-29] MEDS: FUROSEMIDE 40 MG/4 ML VIAL IV SCH (06:04)
[2019-10-29] MEDS: 0.9 % SODIUM CHLORIDE 10 ML SYRINGE IV SCH ×3 (06:04→20:55)
[2019-10-29 06:22] LABS: Hematocrit 35.6 % (34.1-44.9); Hemoglobin 11.9 g/dL (11.2-15.7); Mean Cell Volume 96.5 fL (80.0-100.0); Mean Corpuscular HGB Conc 33.4 g/dL (31.0-36.0); Mean Platelet Volume 11.3 fL (7.4-10.4); RBC 3.69 M/mcL (3.59-5.38); WBC 4.8 K/mcL (4.50-11.00)
[2019-10-29 06:29] LABS: Platelet Count 117 K/mcL (140-440)
[2019-10-29] MEDS: HYDROcodone/APAP 5/325MG TABLET PO PRN ×3 (07:02→20:54)
[2019-10-29 07:07] LABS: ALT/SGPT 12 U/l (0-40); AST/SGOT 18 U/l (0-37); Albumin 3.3 gm/dL (3.2-5.2); Alkaline Phosphatase 58 U/L (39-117); Bilirubin,Direct 0.2 mg/dL (0.0-0.3); Bilirubin,Total 0.5 mg/dL (0.0-1.0); Blood Urea Nitrogen 16 mg/dl (8-23); Calcium 8.9 mg/dl (8.6-10.4); Carbon Dioxide 29 mmol/L (22-30); Chloride 101 mmol/L (96-108); Globulin 3.2 gm/dL (2.2-3.7); Glomerular Filtration Rate 88; Glucose 101 mg/dL (70-105); Lactate Dehydrogenase 195 U/L (94-250); Phosphorous 3.7 mg/dL (2.7-4.5); Triglycerides 39 mg/dl (<150); Uric Acid 8.2 mg/dL (2.5-8.0)
[2019-10-29 07:27] LABS: Anisocytosis 1+ (NONE SEEN); Lymphocytes % 43 % (15-49); Monocytes % (Manual) 8 % (1-12); Platelet Estimate DECREASED (NORMAL); RBC Morphology ABNORM (NORMAL); Segmented Neutrophils % 49 % (38-78)
--- NOTE | 2019-10-29 07:59 | Internal Med Progress Note ---
Medical - PN: Subj Patient information: Note initiated : 10/29/19 at 7:52 am Service Date, if different from initiated Date: [] Patient: Jessie Khan a 69 y/o F admitted on 10/26/19 for Irregular Heart Beat, Cellulitis. Chief Complaint: [] Interval history: Ms. Khan is a 69 year old F with history of morbid obesity/HTN/anasarca who presents with increasing shortness of breath, weakness malaise and over 50 pound weight gain in the last 4 to 5 weeks. Patient symptoms have progressed from dyspnea on exertion to dyspnea at rest. With increasing concerns she was evaluated at primary care physician office and was subsequently directed to ER for further evaluation of anasarca/atrial fibrillation with heart rate over 140. On arrival patient was found to be in A. fib RVR and subsequently diltiazem drip was initiated. Work-up was consistent with CHF with a BNP of 3573/anasarca. Hospital service was consulted in light of A. fib RVR/CHF. Patient BMI 65. She lives along with her brother and has been independent until development of the symptoms over the last 5 weeks. She denies travel outside night states, sick contacts, excessive salt intake, NSAID intake. She denies missing her regular medications. She was recently started on Lasix and has taken 2 doses without relief. She denies fever, diar laurent, dysuria, headache, photophobia, cough, palpitations 10/26-patient doing well. Improved shortness of breath. Diuresing well. Over 3000 cc net negative fluid balance with Lasix. Continue free water restriction. Echocardiogram pending. Atrial fibrillation overnight but rate controlled on diltiazem. Off diltiazem drip. Transition to oral diltiazem. Potassium at 3.3. Aggressive replacement. Dietary intervention. 10/27-patient responded to diuretics. Over 4600 cc net negative. Add Diamox for 2 doses. Continue aggressive potassium replacement. EF 40% with evidence of mild pulmonary hypertension. Neo score over 2 mandating anticoagulation. Started on rivaroxaban after discussion patient. DC Cardizem and switch to extended release metoprolol. Continue DARLENE inhibitor. Uptitrate beta-buck to goal. No overnight RVR. Stable hemodynamics, vitals and labs. 10/28 Feeling better overall. Slept well. Continues to have good diuresis. No new pains or complaints. Review of Systems: denies headache/fever/chills/nausea/vomiting/chest or abdominal pain/cough/dyspnea/diarrhea. Otherwise see above. - Constitutional Vitals: Vital Signs Temp Pulse Resp BP Pulse Ox 97.7 F 87 16 105/63 97 10/29/19 07:45 10/29/19 05:01 10/29/19 07:45 10/29/19 07:45 10/29/19 07:45 Period Temp Pulse Resp BP Sys/[place] Pulse Ox Last 24 Hr 97.5 F-99.3 F 69-103 11-22 91-121/56-88 93-98 Intake and Output 10/28/19 10/29/19 10/29/19 21:59 05:59 13:59 Intake Total 180 Output Total 2145 890 Balance -1964 -0 Weight 153.768 kg Intake & Output: Intake & Output 10/28/19 10/29/19 10/29/19 21:59 05:59 13:59 Intake Total 180 Output Total 2145 890 Balance -1964 -0 Weight 153.768 kg Intake: Oral 180 Output: Urine Catheter Amount 2145 890 Other: Urine Appearance Clear Clear Sediment Sediment Urine Color Blood Tinged Bright Yellow [place] Urine Odor Normal Exam: General: Alert, Awake, No acute Distress, obese Eyes/N/T: EOMI, PERRL, Head/Neck: neck supple, CV: irreg irreg, No murmurs, Pulm: no rales,no wheezing Abd: soft, nontender, +BS x4 Ext: no clubbing/cyanosis, 3+ b/l LE edema Neuro: Alert, no focal deficits, moves all extremities, Skin: warm/dry Medical - PN: Obj Da - Labs CBC & Chem 7: 10/29/19 05:05 10/29/19 05:05 Labs: Abnormal Lab Results 10/29/19 10/29/19 10/28/19 05:05 05:05 05:00 WBC RBC Hgb Hct RDW 16.0 H Plt Count 117 L MPV 11.3 H [place] % (Auto) [place] # (Auto) Monocytes % (Manual) Reactive Lymphocytes RBC Morphology Abnorm A Anisocytosis 1+ A Glucose POC Glucose Hemoglobin A1c Uric Acid 8.2 H POC WB Ioniz Calcium NT-Pro-B Natriuret Pep Total Protein Albumin 2.9 L Urine Protein Ur Leukocyte Esterase Hyaline Casts 10/28/19 10/27/19 10/27/19 05:00 05:00 05:00 WBC 4.0 L RBC 3.45 L 3.22 L Hgb 10.8 L 10.6 L Hct 33.2 L 31.1 L RDW 15.9 H 15.8 H Plt Count 112 L 109 L MPV 11.8 H 11.7 H [place] % (Auto) [place] # (Auto) Monocytes % (Manual) 15 H 13 H Reactive Lymphocytes 6 H RBC Morphology Abnorm A Abnorm A Anisocytosis 1+ A 1+ A Glucose POC Glucose Hemoglobin A1c Uric Acid POC WB Ioniz Calcium NT-Pro-B Natriuret Pep Total Protein 5.6 L Albumin 2.8 L Urine Protein Ur Leukocyte Esterase Hyaline Casts 10/26/19 10/26/19 10/26/19 16:45 16:05 16:05 WBC RBC Hgb Hct RDW Plt Count MPV [place] % (Auto) [place] # (Auto) Monocytes % (Manual) Reactive Lymphocytes RBC Morphology Anisocytosis Glucose 125 H POC Glucose 123 H Hemoglobin A1c 6.4 H Uric Acid POC WB Ioniz Calcium 1.06 L NT-Pro-B Natriuret Pep 3573.0 H Total Protein Albumin Urine Protein 30 A Ur Leukocyte Esterase 25 A Hyaline Casts 7 H 10/26/19 16:05 WBC RBC Hgb Hct RDW 15.9 H Plt Count 127 L MPV 11.7 H [place] % (Auto) 15.8 H [place] # (Auto) 1.06 H Monocytes % (Manual) Reactive Lymphocytes RBC Morphology Anisocytosis Glucose POC Glucose Hemoglobin A1c Uric Acid POC WB Ioniz Calcium NT-Pro-B Natriuret Pep Total Protein Albumin Urine Protein Ur Leukocyte Esterase Hyaline Casts Meds: Medications Acetaminophen (Tylenol) 650 mg PO Q4-6HP PRN; Protocol PRN Reason: Per Pain Protocol/Fever > 101 Last Admin: 10/27/19 07:47 Dose: 650 mg Documented by: Hydrocodone Bitart/Acetaminophen ([place] 5/325mg) 0 tab PO Q6HP PRN; Protocol PRN Reason: Pain Last Admin: 10/29/19 07:02 Dose: 2 tab Documented by: Acetazolamide Sodium (Diamox) 500 mg IV DAILY [facility] Stop: 10/29/19 09:01 Last Admin: 10/28/19 09:03 Dose: 500 mg Documented by: Bisacodyl (Dulcolax) 10 mg [place] Q2-3DAYS PRN PRN Reason: Constipation Docusate Sodium (Colace) 100 mg PO BID [facility] Last Admin: 10/28/19 20:39 Dose: 100 mg Documented by: Furosemide (Lasix) 40 mg IV Q8 [facility] Last Admin: 10/29/19 06:04 Dose: 40 mg Documented by: Hydrochlorothiazide (Oretic) 12.5 mg PO DAILY [facility] Last Admin: 10/28/19 11:52 Dose: Not Given Documented by: Acetaminophen (Ofirmev) 650 mg in 65 mls @ 130 mls/hr IV Q6HP PRN; Protocol PRN Reason: Per Pain Protocol/Fever > 101 Magnesium Sulfate (Magnesium Sulfate) 2 gm in 50 mls @ 50 mls/hr IV UD PRN PRN Reason: MG = or < 1.7 Last Infusion: 10/28/19 09:23 Dose: Infused Documented by: Diltiazem HCl 125 mg/ Dextrose 125 mls @ 5 mls/hr IV Q12HP PRN; Protocol PRN Reason: Tachyarrhythmias Iron Carb/Multivit/[place]/Folic Acid (Multivitamin W/Minerals) 1 tab PO DAILY [facility] Last Admin: 10/28/19 08:15 Dose: 1 tab Documented by: Lisinopril (Zestril) 20 mg PO DAILY [facility] Last Admin: 10/28/19 09:03 Dose: 20 mg Documented by: Melatonin (Melatonin 3mg Tablet) 3 mg PO HSP PRN PRN Reason: Insomnia Metoprolol Succinate (Toprol Xl) 50 mg PO DAILY [facility] Last Admin: 10/28/19 09:02 Dose: 50 mg Documented by: Metoprolol Tartrate (Lopressor) 5 mg IV Q5M PRN PRN Reason: Heart Rate > 140 bpm Ondansetron HCl (Zofran Odt) 4 mg SL Q4-6HP PRN; Protocol PRN Reason: Nausea And Vomiting Ondansetron HCl (Zofran) 4 mg IV Q4-6HP PRN; Protocol PRN Reason: Nausea And Vomiting Polyethylene Glycol (Miralax) 17 gm PO DAILYP PRN PRN Reason: Constipation Potassium Chloride (Klor-Con) 40 meq PO DAILYP PRN PRN Reason: K+ < 3.5 Potassium Chloride ([facility]dur) [facility] Stop: 10/30/19 17:31 Last Admin: 10/28/19 17:11 Dose: 20 meq Documented by: [facility] ([facility]) [facility] Last Admin: 10/28/19 17:11 Dose: 15 mg Documented by: Senna/Docusate Sodium (Senna Plus Tablet) 1 tab PO [facility] Last Admin: 10/28/19 20:39 Dose: 1 tab Documented by: Sodium Chloride (Saline Flush) 10 ml IV Q8 [facility] Last Admin: 10/29/19 06:04 Dose: 10 ml Documented by: Trazodone HCl (Desyrel) 200 mg PO [facility] Last Admin: 10/28/19 20:39 Dose: 200 mg Documented by: Medical - PN: A/P - Time Spent With Patient Total time spent is greater than 50% in coordination of care (as documented) at patient's floor/unit and/or counseling patient: - Narrative A/P Narrative: A: *AFib RVR: -rate controlled *Acute decompensated systolic/diastolic CHF: -echo EF 40%, mod MR/TR, mod Pulm HTN, diastolic dysfxn -good diuresis *Anasarca: responding to diuretics *Hypokalemia: 2/2 diuretics, resolved. *HTN: *Morbid obesity: Plan: -Telemetry monitoring -cont IV lasix decrease from tid to bid, cont home hctz -cont home Lisinopril -Start oral extended-release beta-buck. Uptitrate beta-buck to effect -Rivaroxaban for CVA prophylaxis. -pt/ot -f/u with cardiology outpt. -CM for HHC -ppx: heparin full code Medical - PN: Qual - VTE Deep Vein Thrombosis/Pulmonary Embolism Present on Admission: No
[2019-10-29] MEDS ORDERED: LISINOPRIL 5 MG TABLET PO SCH (09:00)
[2019-10-29] MEDS ORDERED: METOPROLOL SUCCINATE 25 MG TAB.XL.24H PO SCH (09:00)
--- NOTE | 2019-10-29 09:17 | Discharge Summary ---
Medical - DS: Prov Patient information: Note initiated : 10/29/19 at 9:14 am Service Date, if different from initiated Date: [] Patient: Jessie Khan 69 y/o F admitted on 10/26/19 for Irregular Heart Beat, Cellulitis. Chief Complaint: [] Date of admission: 10/26/19 19:32 Discharge date: 10/31/19 Primary care physician: Yvonne Leonardo Consults: 10/26/19 Consult to Physician [CONS] Stat Comment: Consulting Provider: Matthew Peters Reason For Exam: Physician to Consult Medical - DS: Meds - Discharge Medications Prescriptions: Hydrochlorothiazide [Oretic] 12.5 mg PO DAILY #30 cap Transmission Status: Pending to [facility] 2005 Metoprolol Succinate [Toprol Xl] 100 mg PO DAILY #30 tab.xl.24h Transmission Status: Pending to [facility] 2005 Rivaroxaban [Xarelto] 20 mg PO DAILY #30 tab Prescription Printed Lisinopril [Zestril] 10 mg PO DAILY #30 tab Transmission Status: Pending to [facility] 2005 Active and Home Medications: Home Medications Furosemide [Lasix] 40 mg PO QAM 10/26/19 [History Confirmed 10/27/19 Last Taken 10/26/19 08:00] HYDROcodone/APAP 5/325MG [[place] 5-325Mg] 1 - 2 tab PO Q6HP PRN 10/26/19 [History Confirmed 10/27/19 Last Taken 10/25/19 21:00] Lisinopril/Hydrochlorothiazide [Lisinopril-Hctz 20-12.5 mg Tab] 1 each PO QAM 10/26/19 [History Confirmed 10/26/19 Last Taken 10/26/19 08:00] Potassium Chloride [Klor-Con M20] 20 meq PO QAM 10/26/19 [History Confirmed 10/27/19 Last Taken Unknown] Cephalexin [Keflex] 500 mg PO BID 10/27/19 [History Confirmed 10/27/19 Last Taken 10/24/19 20:00] Furosemide [Lasix] 20 mg PO QNOON 10/27/19 [History Confirmed 10/27/19 Last Taken 10/25/19 12:00] Mupirocin Oint 2% [Bactroban Oint 2%] 1 dose TOPICAL BID 10/27/19 [History Confirmed 10/27/19 Last Taken 10/24/19 20:00] traZODone HCL [Desyrel] 200 mg PO HS 10/27/19 [History Confirmed 10/27/19 Last Taken 10/25/19 21:00] Home Medications Furosemide [Lasix] 40 mg PO QAM 10/26/19 [History Confirmed 10/27/19 Last Taken 10/26/19 08:00] HYDROcodone/APAP 5/325MG [[place] 5-325Mg] 1 - 2 tab PO Q6HP PRN 10/26/19 [History Confirmed 10/27/19 Last Taken 10/25/19 21:00] Potassium Chloride [Klor-Con M20] 20 meq PO QAM 10/26/19 [History Confirmed 10/27/19 Last Taken Unknown] Furosemide [Lasix] 20 mg PO QNOON 10/27/19 [History Confirmed 10/27/19 Last Taken 10/25/19 12:00] Mupirocin Oint 2% [Bactroban Oint 2%] 1 dose TOPICAL BID 10/27/19 [History Confirmed 10/27/19 Last Taken 10/24/19 20:00] traZODone HCL [Desyrel] 200 mg PO HS 10/27/19 [History Confirmed 10/27/19 Last Taken 10/25/19 21:00] Rivaroxaban [Xarelto] 20 mg PO DAILY #30 tab 10/29/19 [Rx Last Taken Unknown] Hydrochlorothiazide [Oretic] 12.5 mg PO DAILY #30 cap 10/31/19 [Rx Last Taken Unknown] Lisinopril [Zestril] 10 mg PO DAILY #30 tab 10/31/19 [Rx Last Taken Unknown] Metoprolol Succinate [Toprol Xl] 100 mg PO DAILY #30 tab.xl.24h 10/31/19 [Rx Last Taken Unknown] Medical - DS: Hosp Hospital Course: Ms. Khan is a 69 year old F with history of morbid obesity/HTN/anasarca who presents with increasing shortness of breath, weakness malaise and over 50 pound weight gain in the last 4 to 5 weeks. Patient symptoms have progressed from dyspnea on exertion to dyspnea at rest. With increasing concerns she was evaluated at primary care physician office and was subsequently directed to ER for further evaluation of anasarca/atrial fibrillation with heart rate over 140. On arrival patient was found to be in A. fib RVR and subsequently diltiazem drip was initiated. Work-up was consistent with CHF with a BNP of 3573/anasarca. Hospital service was consulted in light of A. fib RVR/CHF. Patient BMI 65. She lives along with her brother and has been independent until development of the symptoms over the last 5 weeks. She denies travel outside night states, sick contacts, excessive salt intake, NSAID intake. She denies missing her regular medications. She was recently started on Lasix and has taken 2 doses without relief. She denies fever, diarrhea, dysuria, headache, photophobia, cough, palpitations 10/26-patient doing well. Improved shortness of breath. Diuresing well. Over 3000 cc net negative fluid balance with Lasix. Continue free water restriction. Echocardiogram pending. Atrial fibrillation overnight but rate controlled on diltiazem. Off diltiazem drip. Transition to oral diltiazem. Potassium at 3.3. Aggressive replacement. Dietary intervention. 10/27-patient responded to diuretics. Over 4600 cc net negative. Add Diamox for 2 doses. Continue aggressive potassium replacement. EF 40% with evidence of mild pulmonary hypertension. Neo score over 2 mandating anticoagulation. Started on rivaroxaban after discussion patient. DC Cardizem and switch to extended release metoprolol. Continue DARLENE inhibitor. Uptitrate beta-buck to goal. No overnight RVR. Stable hemodynamics, vitals and labs. 10/28 Feeling better overall. Slept well. Continues to have good diuresis. No new pains or complaints. 10/29 Slept well. Feeling good today. Good diuresis continues. Still quite edematous lower extremities. Heart rate 80-100, blood pressure low 100s. Has constipation. 10/30 No overnight events or new complaints. Patient feeling well. Still diuresing well. A: *AFib RVR: -rate controlled *Acute decompensated systolic/diastolic CHF: -echo EF 40-45%, mod MR/TR, mod Pulm HTN, diastolic dysfxn -good diuresis *Anasarca: responding to diuretics *Hypokalemia: 2/2 diuretics, resolved. *HTN: *Morbid obesity: Discharge diagnosis: A. fib RVR diastolic/systolic heart failure anasarca Secondary discharge diagnosis: Hypertension obesity - Time Spent with Patient Total time spent providing and/or coordinating discharge services: Greater than 30 minutes Medical - DS: Exam - Constitutional Vitals: Vital Signs Temp Pulse Resp BP BP Pulse Ox 10/29/19 07:45 97.7 F 16 105/63 97 10/29/19 05:03 97.9 F 10/29/19 05:01 87 11 L 95 10/29/19 04:49 103 H 15 109/79 93 10/29/19 03:45 101 H 13 106/74 96 10/29/19 03:01 69 11 L 93/56 94 10/29/19 02:15 85 14 95 10/29/19 02:14 90 13 101/66 95 10/29/19 01:01 80 13 91/65 96 10/29/19 00:08 98.1 F 10/29/19 00:00 91 H 12 97/64 97 10/28/19 23:02 94 H 13 106/71 97 10/28/19 22:01 97 H 14 94/59 98 10/28/19 20:00 98.2 F 13 93/61 98 10/28/19 18:43 16 10/28/19 18:00 98.6 F 89 16 94/61 93 10/28/19 16:00 98.5 F 87 14 100/66 97 10/28/19 14:21 83 15 96 10/28/19 14:01 97.5 F 90 15 101/63 95 10/28/19 13:15 93 10/28/19 12:00 99.3 F H 12 103/72 94 10/28/19 10:01 97.9 F 100 H 13 98/64 93 Intake and Output 10/28/19 10/29/19 10/29/19 21:59 05:59 13:59 Intake Total 180 Output Total 0220 890 832 Balance -1964 Intake: Oral 180 Output: Urine Catheter Amount 2148 890 550 Other: Meal Breakfast Percent of Meal Consumed 100% Feeding Ability Independent Urine Appearance Clear Clear Clear Sediment Sediment Sediment Urine Color Blood Tinged Bright Yellow [place] Urine Odor Normal Strong Weight 153.768 kg Medical - DS: Data Labs on day of discharge: Labs from last 24 hours 10/29/19 10/29/19 10/29/19 05:05 05:05 05:05 WBC 4.8 RBC 3.69 Hgb 11.9 Hct 35.6 MCV 96.5 MCH 32.2 MCHC 33.4 RDW 16.0 H Plt Count 117 L MPV 11.3 H Total Counted 100 Seg Neutrophils % 49 Band Neutrophils % Not Reportable Lymphocytes % 43 Monocytes % (Manual) 8 Platelet Estimate Decreased RBC Morphology Abnorm A Anisocytosis 1+ A Sodium 141 Potassium 3.8 Chloride 101 Carbon Dioxide 29 Anion Gap 11.0 BUN 16 Creatinine 0.7 GFR Calculation 88 Glucose 101 Uric Acid 8.2 H Calcium 8.9 Phosphorus 3.7 Magnesium 2.0 Total Bilirubin 0.5 Direct Bilirubin 0.2 GGT 32 AST 18 ALT 12 Alkaline Phosphatase 58 Lactate Dehydrogenase 195 NT-Pro-B Natriuret Pep 3083.0 H Total Protein 6.5 Albumin 3.3 Globulin 3.2 Albumin/Globulin Ratio 1.0 Triglycerides 39 Medical - DS: A/P - Patient/Caregiver Discharge Instructions Activity: as per physical therapy, increase activity as tolerated Diet: Cardiac Additional Instructions: Referral to see cardiology in 5 to 10 days Prescriptions: Rivaroxaban [Xarelto] 20 mg PO DAILY #30 tab Prescription Printed Other Amb Orders: OT Discharge Order Location: None Selected Physical Therapy at Discharge - General Location: None Selected - Follow up Plan Follow up with: Yvonne Leonardo ARNP [Primary Care Provider] - Disposition: Xfer [facility] Prognosis: Fair Rehab Potential: Fair Overall status at discharge: patient is progressing back to baseline Medical - DS: Qual - VTE Deep Vein Thrombosis/Pulmonary Embolism Present on Admission: No
[2019-10-29] MEDS: POLYETHYLENE GLYCOL 3350 17 GM PACKET PO PRN (09:23)
[2019-10-29] MEDS: acetaZOLAMIDE SOD 500 MG VIAL IV SCH (09:23)
[2019-10-29] MEDS: DOCUSATE SODIUM 100 MG CAPSULE PO SCH ×2 (09:24→20:55)
[2019-10-29] MEDS: MULTIVIT,THER IRON,CA,FA & MIN 1 TABLET PO SCH (09:24)
[2019-10-29] MEDS: POTASSIUM CHLORIDE 20 MEQ TABLET PO SCH ×2 (09:24→17:07)
[2019-10-29] MEDS: RIVAROXABAN 15 MG TABLET PO SCH (09:28)
[2019-10-29] MEDS: HYDROCHLOROTHIAZIDE 12.5 MG CAPSULE PO SCH (14:13)
[2019-10-29] MEDS ORDERED: FUROSEMIDE 40 MG TABLET PO SCH (16:00)
[2019-10-29] MEDS: SENNOSIDES/DOCUSATE SODIUM 1 TAB TABLET PO SCH (20:55)
[2019-10-29] MEDS: traZODone HCL 100 MG TABLET PO SCH (20:55)
[2019-10-30] MEDS: 0.9 % SODIUM CHLORIDE 10 ML SYRINGE IV SCH ×4 (05:29→20:55)
[2019-10-30 06:54] LABS: Chloride 101 mmol/L (96-108)
[2019-10-30 06:55] LABS: ALT/SGPT 11 U/l (0-40); AST/SGOT 20 U/l (0-37); Albumin 3.1 gm/dL (3.2-5.2); Albumin/Globulin Ratio 1.1 (1.0-2.3); Alkaline Phosphatase 52 U/L (39-117); Bilirubin,Direct < 0.2 mg/dL (0.0-0.3); Bilirubin,Total 0.4 mg/dL (0.0-1.0); Blood Urea Nitrogen 22 mg/dl (8-23); Calcium 8.8 mg/dl (8.6-10.4); Carbon Dioxide 28 mmol/L (22-30); Globulin 2.8 gm/dL (2.2-3.7); Glomerular Filtration Rate 75; Glucose 95 mg/dL (70-105); Lactate Dehydrogenase 185 U/L (94-250); Phosphorous 4.3 mg/dL (2.7-4.5); Triglycerides 39 mg/dl (<150)
[2019-10-30] MEDS ORDERED: ALBUMIN HUMAN 12.5 GM/50 ML BAG IV ONE (07:57)
[2019-10-30] MEDS ORDERED: FUROSEMIDE 40 MG/4 ML VIAL IV ONE ×2 (07:57→16:00)
--- NOTE | 2019-10-30 08:00 | Internal Med Progress Note ---
Medical - PN: Subj Patient information: Note initiated : 10/30/19 at 7:56 am Service Date, if different from initiated Date: [] Patient: Jessie Khan a 69 y/o F admitted on 10/26/19 for Irregular Heart Beat, Cellulitis. Chief Complaint: [] Interval history: Ms. Khan is a 69 year old F with history of morbid obesity/HTN/anasarca who presents with increasing shortness of breath, weakness malaise and over 50 pound weight gain in the last 4 to 5 weeks. Patient symptoms have progressed from dyspnea on exertion to dyspnea at rest. With increasing concerns she was evaluated at primary care physician office and was subsequently directed to ER for further evaluation of anasarca/atrial fibrillation with heart rate over 140. On arrival patient was found to be in A. fib RVR and subsequently diltiazem drip was initiated. Work-up was consistent with CHF with a BNP of 3573/anasarca. Hospital service was consulted in light of A. fib RVR/CHF. Patient BMI 65. She lives along with her brother and has been independent until development of the symptoms over the last 5 weeks. She denies travel outside night states, sick contacts, excessive salt intake, NSAID intake. She denies missing her regular medications. She was recently started on Lasix and has taken 2 doses without relief. She denies fever, diar laurent, dysuria, headache, photophobia, cough, palpitations 10/26-patient doing well. Improved shortness of breath. Diuresing well. Over 3000 cc net negative fluid balance with Lasix. Continue free water restriction. Echocardiogram pending. Atrial fibrillation overnight but rate controlled on diltiazem. Off diltiazem drip. Transition to oral diltiazem. Potassium at 3.3. Aggressive replacement. Dietary intervention. 10/27-patient responded to diuretics. Over 4600 cc net negative. Add Diamox for 2 doses. Continue aggressive potassium replacement. EF 40% with evidence of mild pulmonary hypertension. Neo score over 2 mandating anticoagulation. Started on rivaroxaban after discussion patient. DC Cardizem and switch to extended release metoprolol. Continue DARLENE inhibitor. Uptitrate beta-buck to goal. No overnight RVR. Stable hemodynamics, vitals and labs. 10/28 Feeling better overall. Slept well. Continues to have good diuresis. No new pains or complaints. 10/29 Slept well. Feeling good today. Good diuresis continues. Still quite edematous lower extremities. Heart rate 80-100, blood pressure low 100s. Has constipation. Review of Systems: denies headache/fever/chills/nausea/vomiting/chest or abdominal pain/. Otherwise see above. - Constitutional Vitals: Vital Signs Temp Pulse Resp BP Pulse Ox 98 F 78 16 104/65 95 10/30/19 05:00 10/30/19 05:00 10/30/19 05:00 10/30/19 05:00 10/30/19 05:00 Period Temp Pulse Resp BP Sys/Palmer Pulse Ox Last 24 Hr 97.0 F-98.2 F 78-92 13-18 95-119/54-83 95-99 Intake and Output 10/29/19 10/30/19 10/30/19 21:59 05:59 13:59 Intake Total 720 Output Total 1050 500 Balance -330 -500 Weight 151.953 kg 151.953 kg Patient Weight 10/31/19 05:59 Weight 151.953 kg Intake & Output: Intake & Output 10/29/19 10/30/19 10/30/19 21:59 05:59 13:59 Intake Total 720 Output Total 1050 500 Balance -330 -500 Weight 151.953 kg 151.953 kg Intake: Oral 720 Output: Urine Catheter Amount 1050 500 Other: Meal Dinner Percent of Meal Consumed 100% Feeding Ability Independent Urine Appearance Cloudy Cloudy Sediment Uretheral ([place]on[place]) Cloudy Cloudy Sediment Urine Color Dark Yellow Straw Uretheral ([place]) Dark Yellow Straw Urine Odor Strong Exam: General: Alert, Awake, No acute Distress, obese Eyes/N/T: EOMI, PERRL, Head/Neck: neck supple, CV: irreg irreg, No murmurs, Pulm: no rales,no wheezing Abd: soft, nontender, +BS x4 Ext: no clubbing/cyanosis, 2-3+ b/l LE edema Neuro: Alert, no focal deficits, moves all extremities, Skin: warm/dry Medical - PN: Obj Da - Labs CBC & Chem 7: 10/29/19 05:05 10/30/19 05:05 Labs: Abnormal Lab Results 10/30/19 10/29/19 10/29/19 05:05 05:05 05:05 WBC RBC Hgb Hct RDW Plt Count MPV Monocytes % (Manual) RBC Morphology Anisocytosis Uric Acid 8.2 H NT-Pro-B Natriuret Pep 3083.0 H Albumin 3.1 L 10/29/19 10/28/19 10/28/19 05:05 05:00 05:00 WBC 4.0 L RBC 3.45 L Hgb 10.8 L Hct 33.2 L RDW 16.0 H 15.9 H Plt Count 117 L 112 L MPV 11.3 H 11.8 H Monocytes % (Manual) 15 H RBC Morphology Abnorm A Abnorm A Anisocytosis 1+ A 1+ A Uric Acid NT-Pro-B Natriuret Pep Albumin 2.9 L Meds: Medications Acetaminophen (Tylenol) 650 mg PO Q4-6HP PRN; Protocol PRN Reason: Per Pain Protocol/Fever > 101 Last Admin: 10/27/19 07:47 Dose: 650 mg Documented by: Hydrocodone Bitart/Acetaminophen ([place] 5/325mg) 0 tab PO Q6HP PRN; Protocol PRN Reason: Pain Last Admin: 10/29/19 20:54 Dose: 2 tab Documented by: Bisacodyl (Dulcolax) 10 mg UT Q2-3DAYS PRN PRN Reason: Constipation Docusate Sodium (Colace) 100 mg PO BID [facility] Last Admin: 10/29/19 20:55 Dose: 100 mg Documented by: Furosemide (Lasix) 40 mg PO BIDD [facility] Last Admin: 10/29/19 15:50 Dose: 40 mg Documented by: Hydrochlorothiazide (Oretic) 12.5 mg PO DAILY [facility] Last Admin: 10/29/19 14:13 Dose: 12.5 mg Documented by: Acetaminophen (Ofirmev) 650 mg in 65 mls @ 130 mls/hr IV Q6HP PRN; Protocol PRN Reason: Per Pain Protocol/Fever > 101 Magnesium Sulfate (Magnesium Sulfate) 2 gm in 50 mls @ 50 mls/hr IV UD PRN PRN Reason: MG = or < 1.7 Last Infusion: 10/28/19 09:23 Dose: Infused Documented by: Diltiazem HCl 125 mg/ Dextrose 125 mls @ 5 mls/hr IV Q12HP PRN; Protocol PRN Reason: Tachyarrhythmias Iron Carb/Multivit/Sims/Folic Acid (Multivitamin W/Minerals) 1 tab PO DAILY [facility] Last Admin: 10/29/19 09:24 Dose: 1 tab Documented by: Lisinopril (Zestril) 15 mg PO DAILY [facility] Last Admin: 10/29/19 09:24 Dose: 15 mg Documented by: Melatonin (Melatonin 3mg Tablet) 3 mg PO HSP PRN PRN Reason: Insomnia Metoprolol Succinate (Toprol Xl) 75 mg PO DAILY [facility] Last Admin: 10/29/19 09:23 Dose: 75 mg Documented by: Metoprolol Tartrate (Lopressor) 5 mg IV Q5M PRN PRN Reason: Heart Rate > 140 bpm Ondansetron HCl (Zofran Odt) 4 mg SL Q4-6HP PRN; Protocol PRN Reason: Nausea And Vomiting Ondansetron HCl (Zofran) 4 mg IV Q4-6HP PRN; Protocol PRN Reason: Nausea And Vomiting Polyethylene Glycol (Miralax) 17 gm PO DAILYP PRN PRN Reason: Constipation Last Admin: 10/29/19 09:23 Dose: 17 gm Documented by: Potassium Chloride (Klor-Con) 40 meq PO DAILYP PRN PRN Reason: K+ < 3.5 Potassium Chloride (Kdur) 20 meq PO BIDCC [facility] Stop: 10/30/19 17:31 Last Admin: 10/29/19 17:07 Dose: 20 meq Documented by: Rivaroxaban (Xarelto) 20 mg PO QPMCC [facility] Senna/Docusate Sodium (Senna Plus Tablet) 1 tab PO [facility] Last Admin: 10/29/19 20:55 Dose: 1 tab Documented by: Sodium Chloride (Saline Flush) 10 ml IV Q8 [facility] Last Admin: 10/30/19 05:29 Dose: 10 ml Documented by: Trazodone HCl (Desyrel) 200 mg PO [facility] Last Admin: 10/29/19 20:55 Dose: 200 mg Documented by: Medical - PN: A/P - Time Spent With Patient Total time spent is greater than 50% in coordination of care (as documented) at patient's floor/unit and/or counseling patient: - Narrative A/P Narrative: A: *AFib RVR: -rate controlled *Acute decompensated systolic/diastolic CHF: -echo EF 40%, mod MR/TR, mod Pulm HTN, diastolic dysfxn -good diuresis *Anasarca: responding to diuretics *Hypokalemia: 2/2 diuretics, resolved. *HTN: *Morbid obesity: Plan: -Telemetry monitoring -cont IV lasix bid, cont home hctz -cont home Lisinopril (decreased as I increased BB) -Started oral extended-release beta-buck. Uptitrate beta-buck to effect -Rivaroxaban for CVA prophylaxis. -pt/ot -f/u with cardiology outpt. -CM for HHC -ppx: heparin full code Medical - PN: Qual - VTE Deep Vein Thrombosis/Pulmonary Embolism Present on Admission: No
[2019-10-30] MEDS: MULTIVIT,THER IRON,CA,FA & MIN 1 TABLET PO SCH (09:11)
[2019-10-30] MEDS: HYDROCHLOROTHIAZIDE 12.5 MG CAPSULE PO SCH (09:11)
[2019-10-30] MEDS: LISINOPRIL 10 MG TABLET PO SCH (09:11)
[2019-10-30] MEDS: METOPROLOL SUCCINATE 50 MG TAB.XL.24H PO SCH (09:11)
[2019-10-30] MEDS: DOCUSATE SODIUM 100 MG CAPSULE PO SCH ×2 (09:12→20:55)
[2019-10-30] MEDS: POTASSIUM CHLORIDE 20 MEQ TABLET PO SCH ×2 (09:12→17:45)
[2019-10-30] MEDS: HYDROcodone/APAP 5/325MG TABLET PO PRN ×2 (10:03→16:07)
[2019-10-30] MEDS: POLYETHYLENE GLYCOL 3350 17 GM PACKET PO PRN (12:40)
[2019-10-30] MEDS ORDERED: RIVAROXABAN 20 MG TABLET PO SCH (17:30)
[2019-10-30] MEDS: SENNOSIDES/DOCUSATE SODIUM 1 TAB TABLET PO SCH (20:55)
[2019-10-30] MEDS: traZODone HCL 100 MG TABLET PO SCH (20:55)
[2019-10-31] MEDS: 0.9 % SODIUM CHLORIDE 10 ML SYRINGE IV SCH ×2 (05:47→08:50)
[2019-10-31 06:33] LABS: Bilirubin,Direct < 0.2 mg/dL (0.0-0.3); Chloride 99 mmol/L (96-108)
[2019-10-31 06:39] LABS: ALT/SGPT 11 U/l (0-40); AST/SGOT 22 U/l (0-37); Albumin 3.4 gm/dL (3.2-5.2); Alkaline Phosphatase 59 U/L (39-117); Bilirubin,Total 0.6 mg/dL (0.0-1.0); Blood Urea Nitrogen 23 mg/dl (8-23); Calcium 9.3 mg/dl (8.6-10.4); Carbon Dioxide 24 mmol/L (22-30); Globulin 3.5 gm/dL (2.2-3.7); Glomerular Filtration Rate 75; Glucose 98 mg/dL (70-105); Lactate Dehydrogenase 236 U/L (94-250); Phosphorous 3.8 mg/dL (2.7-4.5); Triglycerides 63 mg/dl (<150); Uric Acid 8.2 mg/dL (2.5-8.0)
--- NOTE | 2019-10-31 07:27 | Internal Med Progress Note ---
Medical - PN: Subj Patient information: Note initiated : 10/31/19 at 7:25 am Service Date, if different from initiated Date: [] Patient: Jessie Khan a 69 y/o F admitted on 10/26/19 for Irregular Heart Beat, Cellulitis. Chief Complaint: [] Interval history: Ms. Khan is a 69 year old F with history of morbid obesity/HTN/anasarca who presents with increasing shortness of breath, weakness malaise and over 50 pound weight gain in the last 4 to 5 weeks. Patient symptoms have progressed from dyspnea on exertion to dyspnea at rest. With increasing concerns she was evaluated at primary care physician office and was subsequently directed to ER for further evaluation of anasarca/atrial fibrillation with heart rate over 140. On arrival patient was found to be in A. fib RVR and subsequently diltiazem drip was initiated. Work-up was consistent with CHF with a BNP of 3573/anasarca. Hospital service was consulted in light of A. fib RVR/CHF. Patient BMI 65. She lives along with her brother and has been independent until development of the symptoms over the last 5 weeks. She denies travel outside night states, sick contacts, excessive salt intake, NSAID intake. She denies missing her regular medications. She was recently started on Lasix and has taken 2 doses without relief. She denies fever, diar laurent, dysuria, headache, photophobia, cough, palpitations 10/26-patient doing well. Improved shortness of breath. Diuresing well. Over 3000 cc net negative fluid balance with Lasix. Continue free water restriction. Echocardiogram pending. Atrial fibrillation overnight but rate controlled on diltiazem. Off diltiazem drip. Transition to oral diltiazem. Potassium at 3.3. Aggressive replacement. Dietary intervention. 10/27-patient responded to diuretics. Over 4600 cc net negative. Add Diamox for 2 doses. Continue aggressive potassium replacement. EF 40% with evidence of mild pulmonary hypertension. Neo score over 2 mandating anticoagulation. Started on rivaroxaban after discussion patient. DC Cardizem and switch to extended release metoprolol. Continue DARLENE inhibitor. Uptitrate beta-buck to goal. No overnight RVR. Stable hemodynamics, vitals and labs. 10/28 Feeling better overall. Slept well. Continues to have good diuresis. No new pains or complaints. 10/29 Slept well. Feeling good today. Good diuresis continues. Still quite edematous lower extremities. Heart rate 80-100, blood pressure low 100s. Has constipation. 10/30 No overnight events or new complaints. Patient feeling well. Still diuresing well. Review of Systems: denies headache/fever/chills/nausea/vomiting/chest or abdominal pain/. Otherwise see above. - Constitutional Vitals: Vital Signs Temp Pulse Resp BP Pulse Ox 98.3 F 89 16 119/97 96 10/31/19 04:55 10/31/19 04:55 10/31/19 04:55 10/31/19 04:55 10/31/19 04:55 Period Temp Pulse Resp BP Sys/Palmer Pulse Ox Last 24 Hr 97.4 F-98.8 F 89 12-20 87-119/48-97 94-98 Intake and Output 10/30/19 10/31/19 10/31/19 21:59 05:59 13:59 Intake Total 240 200 Output Total 1950 1160 Balance -1710 -960 Weight 148.778 kg Intake & Output: Intake & Output 10/30/19 10/31/19 10/31/19 21:59 05:59 13:59 Intake Total 240 200 Output Total 1950 1160 Balance -1710 -960 Weight 148.778 kg Intake: Oral 240 GI Tube Flush 200 Output: Urine Catheter Amount 1950 1160 Other: Meal Dinner Percent of Meal Consumed 25% Feeding Ability Independent Urine Appearance Hematuria Clear Uretheral ([place]) Clear Clear Hematuria Urine Color Blood Tinged [place] Uretheral ([place]) [place] Urine Odor Normal Exam: General: Alert, Awake, No acute Distress, obese Eyes/N/T: EOMI, PERRL, Head/Neck: neck supple, CV: irreg irreg, No murmurs, Pulm: no rales,no wheezing Abd: soft, nontender, +BS x4 Ext: no clubbing/cyanosis, 2-3+ b/l LE edema Neuro: Alert, no focal deficits, moves all extremities, Skin: warm/dry Medical - PN: Obj Da - Labs CBC & Chem 7: 10/29/19 05:05 10/31/19 05:10 Labs: Abnormal Lab Results 10/31/19 10/30/19 10/29/19 05:10 05:05 05:05 RDW Plt Count MPV RBC Morphology Anisocytosis Uric Acid 8.2 H NT-Pro-B Natriuret Pep 3083.0 H Albumin 3.1 L 10/29/19 10/29/19 05:05 05:05 RDW 16.0 H Plt Count 117 L MPV 11.3 H RBC Morphology Abnorm A Anisocytosis 1+ A Uric Acid 8.2 H NT-Pro-B Natriuret Pep Albumin Meds: Medications Acetaminophen (Tylenol) 650 mg PO Q4-6HP PRN; Protocol PRN Reason: Per Pain Protocol/Fever > 101 Last Admin: 10/27/19 07:47 Dose: 650 mg Documented by: Hydrocodone Bitart/Acetaminophen ([place] 5/325mg) 0 tab PO Q6HP PRN; Protocol PRN Reason: Pain Last Admin: 10/30/19 16:07 Dose: 2 tab Documented by: Bisacodyl (Dulcolax) 10 mg IA Q2-3DAYS PRN PRN Reason: Constipation Docusate Sodium (Colace) 100 mg PO BID [facility] Last Admin: 10/30/19 20:55 Dose: 100 mg Documented by: Furosemide (Lasix) 40 mg PO QAM [facility] Hydrochlorothiazide (Oretic) 12.5 mg PO DAILY [facility] Last Admin: 10/30/19 09:11 Dose: 12.5 mg Documented by: Acetaminophen (Ofirmev) 650 mg in 65 mls @ 130 mls/hr IV Q6HP PRN; Protocol PRN Reason: Per Pain Protocol/Fever > 101 Magnesium Sulfate (Magnesium Sulfate) 2 gm in 50 mls @ 50 mls/hr IV UD PRN PRN Reason: MG = or < 1.7 Last Infusion: 10/28/19 09:23 Dose: Infused Documented by: Diltiazem HCl 125 mg/ Dextrose 125 mls @ 5 mls/hr IV Q12HP PRN; Protocol PRN Reason: Tachyarrhythmias Iron Carb/Multivit/[place]/Folic Acid (Multivitamin W/Minerals) 1 tab PO DAILY [facility] Last Admin: 10/30/19 09:11 Dose: 1 tab Documented by: Lisinopril (Zestril) 10 mg PO DAILY [facility] Last Admin: 10/30/19 09:11 Dose: 10 mg Documented by: Melatonin (Melatonin 3mg Tablet) 3 mg PO HSP PRN PRN Reason: Insomnia Metoprolol Succinate (Toprol Xl) 100 mg PO DAILY [facility] Last Admin: 10/30/19 09:11 Dose: 100 mg Documented by: Metoprolol Tartrate (Lopressor) 5 mg IV Q5M PRN PRN Reason: Heart Rate > 140 bpm Ondansetron HCl (Zofran Odt) 4 mg SL Q4-6HP PRN; Protocol PRN Reason: Nausea And Vomiting Ondansetron HCl (Zofran) 4 mg IV Q4-6HP PRN; Protocol PRN Reason: Nausea And Vomiting Polyethylene Glycol (Miralax) 17 gm PO DAILYP PRN PRN Reason: Constipation Last Admin: 10/30/19 12:40 Dose: 17 gm Documented by: Potassium Chloride (Klor-Con) 40 meq PO DAILYP PRN PRN Reason: K+ < 3.5 Rivaroxaban (Xarelto) 20 mg PO QPMCC [facility] Last Admin: 10/30/19 17:45 Dose: 20 mg Documented by: Senna/Docusate Sodium (Senna Plus Tablet) 1 tab PO [facility] Last Admin: 10/30/19 20:55 Dose: 1 tab Documented by: Sodium Chloride (Saline Flush) 10 ml IV Q8 [facility] Last Admin: 10/31/19 05:47 Dose: Not Given Documented by: Trazodone HCl (Desyrel) 200 mg PO [facility] Last Admin: 10/30/19 20:55 Dose: 200 mg Documented by: Medical - PN: A/P - Time Spent With Patient Total time spent is greater than 50% in coordination of care (as documented) at patient's floor/unit and/or counseling patient: - Narrative A/P Narrative: A: *AFib RVR: -rate controlled *Acute decompensated systolic/diastolic CHF: -echo EF 40%, mod MR/TR, mod Pulm HTN, diastolic dysfxn -good diuresis *Anasarca: responding to diuretics *Hypokalemia: 2/2 diuretics, resolved. *HTN: *Morbid obesity: Plan: -Telemetry monitoring -IV to PO lasix, cont home hctz -cont home Lisinopril (decreased since I increased BB) -Started oral extended-release beta-buck. Uptitrate beta-buck to effect -Rivaroxaban for CVA prophylaxis. -pt/ot -f/u with cardiology outpt. -CM for placement -ppx: Rivaroxaban full code Medical - PN: Qual - VTE Deep Vein Thrombosis/Pulmonary Embolism Present on Admission: No
[2019-10-31] MEDS ORDERED: FUROSEMIDE 40 MG/4 ML VIAL IV ONE (07:41)
[2019-10-31] MEDS: MULTIVIT,THER IRON,CA,FA & MIN 1 TABLET PO SCH (08:52)
[2019-10-31] MEDS: POLYETHYLENE GLYCOL 3350 17 GM PACKET PO PRN (08:52)
[2019-10-31] MEDS: DOCUSATE SODIUM 100 MG CAPSULE PO SCH (08:52)
[2019-10-31] MEDS: HYDROCHLOROTHIAZIDE 12.5 MG CAPSULE PO SCH (08:53)
[2019-10-31] MEDS: METOPROLOL SUCCINATE 50 MG TAB.XL.24H PO SCH (08:53)
[2019-10-31] MEDS: LISINOPRIL 10 MG TABLET PO SCH (08:53)
[2019-10-31] MEDS ORDERED: FUROSEMIDE 20 MG TABLET PO SCH ×2 (09:00→12:00)
[2019-10-31] MEDS: HYDROcodone/APAP 5/325MG TABLET PO PRN (09:34)
== END 2019-10-31 14:10 | DRG 308 ==
LOC: ED 15:42 → ICU 19:32
PROVIDERS: ADMIT Internal Medicine; ATTEND Internal Medicine

== ENCOUNTER 2021-09-11 17:33 | Observation (INO) ==
[2021-09-11] MEDS ORDERED: IOPAMIDOL 100 ML BOTTLE IV ONE (17:34)
--- NOTE | 2021-09-11 18:33 | Emergency Department Note ---
HPI General Chief complaint: Weakness Stated complaint: weakness Source: EMS Mode of arrival: EMS Limitations: physical limitation History of Present Illness HPI Narrative: History obtained from patient and family member says she has [id number] female presents ED for some generalized weakness and progressive confusion. ongoing progressive confusion at least for the last 2 months. noticed to have developed Also had some expressive aphasia/word finding difficulties at least since yesterday. She has no focal weakness. No fever or chills that she is aware of, no URI symptoms, no chest pain or palpitations. Has had some slight dyspnea and cough. No abdominal pain. No nausea vomiting diarrhea or GI symptoms. She is currently taking Keflex for about 2 weeks for a cellulitis to her left lower extremity which is also an a compression dressing but says this is getting better. No history of strokes. Does have a history of A. fib, and no recent medication changes other than the Keflex. No other complaints. No similar episodes in the past. Lives at home with her brother. Related Data Home Medications Medication Instructions Recorded Confirmed furosemide 20 mg tablet 40 mg PO QAM 10/26/19 09/11/21 hydrocodone 5 mg-acetaminophen 325 1 - 2 tab PO Q6HP PRN 10/26/19 09/11/21 mg tablet potassium chloride 20 mEq 20 meq PO QAM 10/26/19 09/11/21 tablet,extended release(part/cryst) mupirocin 2 % topical ointment 1 dose TOPICAL BID 10/27/19 09/11/21 lisinopril 20 1 tab PO QDAY 09/11/21 09/11/21 mg-hydrochlorothiazide 12.5 mg tablet trazodone 100 mg tablet 2 tab PO HS 09/11/21 09/11/21 Previous Rx's Medication Instructions Recorded metoprolol succinate 50 mg 100 mg PO DAILY #30 tab.xl.24h 10/31/19 tablet,extended release 24 hr Allergies Allergy/AdvReac Type Severity Reaction Status Date / Time Sulfa (Sulfonamide Allergy Severe Swelling Verified 09/11/21 17:44 Antibiotics) of Lip/Tongue/Throat Review of Systems ROS ROS Narrative: Narrative: At least 10 systems reviewed and otherwise acutely negative except as in the HPI PFSH Narrative Patient History Narrative: Narrative: Medical/Surgical/Family History All Active Problems (Updated 09/11/21 @ 20:49 by Roberto Carlos Castro DO) Atrial fibrillation (Acute) Pedal edema (Acute) Bilateral lower extremity edema (Acute) Atrial fibrillation with RVR (Acute) Generalized weakness (Acute) Chronic confusion (Acute) Expressive aphasia (Acute) Social History Smoking Status: Never smoker Exam Narrative Narrative: Narrative: Constitutional: normally developed, no acute distress . Head: Normocephalic, atraumatic, Eyes: No Icterus, no conjunctival injection ENT: Moist mucus membranes, Neck: Supple, Cardiac: Normal heart sounds, palpable peripheral pulses, slight lower extremity peripheral edema Pulmonary: Normal respiratory effort. Breath sounds clear, no wheeze, rhonchi, rales, Gastrointestinal: Abdomen soft, non-distended, non-tender, Musculoskeletal: No gross deformities, well perfused. Left lower extremity has some resolving mild appearing cellulitis with a compression dressing, extremities are all well-perfused Skin: warm, dry Neuro: Alert and orientedx2-3. Face symmetric, PERRLA, EOMI, visual corona intact, symmetric sensation in face, bilateral upper and lower extremities. No drift in extremities, no [id number] ataxia, symmetric motor strength in bilateral upper and lower extremities, no dysarthria. Patient does have some expressive aphasia/word finding difficulties. NIH of 2 for slight confusion and moderate expressive aphasia General Limitations: physical limitation Course Vital Signs Vital signs: Vital Signs Temperature 37.9 C H 09/11/21 17:38 Pulse Rate 121 H 09/11/21 17:38 Respiratory Rate 18 09/11/21 17:38 Pulse Oximetry (%) 100 09/11/21 17:38 Temperature 37.1 C 09/12/21 04:01 Pulse Rate 50 L 09/12/21 04:01 Respiratory Rate 14 09/12/21 04:01 Blood Pressure 99/53 09/12/21 04:01 Pulse Oximetry (%) 93 09/12/21 04:01 [facility] MDM Narrative Medical decision making narrative: Narrative: Patient presents with some ongoing confusion for the last few months as well as some progressive generalized weakness and has since developed some expressive aphasia since at least yesterday. Her vitals are stable overall nontoxic although she is borderline febrile. Work-up is initiated, detailed ex am as above, she has no obvious lateralizing deficits but does have some word finding difficulties and slight confusion. Symptoms have been ongoing for at least 24 hours if not longer thus is not any stroke protocol criteria, Twelve-lead EKG does show sinus rhythm heart rate 51 TX within normal QTC prolonged 525. She does have some deep T wave inversions in V3 through V6 as well as inferior leads, appear new compared to previous no ST elevations. Rapid Covid negative CBC unremarkable no leukocytosis, electrolytes no significant abnormalities, LFTs normal, troponin negative Urinalysis negative for infection CT head and CT angio: no acute findings Chest x-ray per my interpretation no obvious acute findings Reevaluation: Vitals are stable no evidence of emergent process on the ER work- up thus far however given her mild strokelike symptoms do believe she warrants admission for further work-up and evaluation possible MRI. Did speak with hospitalist who accepts admission at this time. Lab Data Result diagrams: 09/11/21 17:59 09/11/21 17:59 Labs: Lab Results 09/11/21 09/11/21 09/11/21 Range/Units 17:59 17:59 17:59 WBC 7.1 (4.5-11.0) K/mcL RBC 4.31 (3.59-5.38) M/mcL Hgb 13.3 (11.2-15.7) g/dL Hct 40.4 (34.1-44.9) % MCV 93.7 (80.0-100.0) fL MCH 30.9 (26.0-34.0) pg MCHC 32.9 (31.0-36.0) g/dL RDW 13.3 (11.5-14.5) % Plt Count 153 (140-440) K/mcL MPV 11.4 H (7.4-10.4) fL Neut % (Auto) 46.7 (38.0-78.0) % Lymph % (Auto) 38.0 (15.5-49.0) % [place] % (Auto) 13.5 H (1.0-12.0) % Eos % (Auto) 1.1 (0.0-7.0) % Baso % (Auto) 0.7 (0.0-2.0) % Lymph # (Auto) 2.70 (1.50-4.80) K/mcL [place] # (Auto) 0.96 H (0.10-0.90) K/mcL Eos # (Auto) 0.08 (0.00-0.70) K/mcL Baso # (Auto) 0.05 (0.00-0.30) K/mcL Absolute Neutrophils 3.32 (1.80-8.00) K/mcL Sodium 133 (133-145) mmol/L Potassium 4.0 (3.3-5.1) mmol/L Chloride 95 L (96-108) mmol/L Carbon Dioxide 28 (22-30) mmol/L Anion Gap 10.0 (8.0-16.0) BUN 33 H (8-23) mg/dL Creatinine 1.0 (0.6-1.1) mg/dL POC Creatinine (0.6-1.2) mg/dL GFR Calculation 57 Glucose 132 H (70-105) mg/dL Calcium 9.2 (8.6-10.4) mg/dL Magnesium 2.2 (1.6-2.5) mg/dL Total Bilirubin 0.3 (0.1-1.0) mg/dL AST 16 (<32) U/L ALT 11 (<40) U/L Alkaline Phosphatase 65 (39-117) U/L Troponin T < 0.01 (<0.03) ng/mL Total Protein 7.0 (5.9-8.4) gm/dL Albumin 3.8 (3.2-5.2) gm/dL Globulin 3.2 (2.2-3.7) gm/dL Albumin/Globulin Ratio 1.2 (1.0-2.3) Urine Color Urine Appearance (Clear) Urine pH (5.0-9.0) Ur Specific [place] (1.000-1.035) Urine Protein (Negative) mg/dL Urine Glucose (UA) (Negative) mg/dL Urine Ketones (Negative) mg/dL Urine Occult Blood (Negative) corey/mcL Urine Nitrate (Negative) Urine Bilirubin (Negative) mg/dL Urine Urobilinogen mg/dL Ur Leukocyte Esterase (Negative) /uL Urine RBC (0-3) /hpf Urine WBC (0-4) /hpf Ur Squamous Epith Cells (0-4) /hpf Urine Bacteria (0) /hpf Hyaline Casts (0-2) /lph Urine Mucus (None) /hpf Ur Culture Indicated? 09/11/21 09/11/21 Range/Units 18:29 19:24 WBC (4.5-11.0) K/mcL RBC (3.59-5.38) M/mcL Hgb (11.2-15.7) g/dL Hct (34.1-44.9) % MCV (80.0-100.0) fL MCH (26.0-34.0) pg MCHC (31.0-36.0) g/dL RDW (11.5-14.5) % Plt Count (140-440) K/mcL MPV (7.4-10.4) fL Neut % (Auto) (38.0-78.0) % Lymph % (Auto) (15.5-49.0) % [place] % (Auto) (1.0-12.0) % Eos % (Auto) (0.0-7.0) % Baso % (Auto) (0.0-2.0) % Lymph # (Auto) (1.50-4.80) K/mcL [place] # (Auto) (0.10-0.90) K/mcL Eos # (Auto) (0.00-0.70) K/mcL Baso # (Auto) (0.00-0.30) K/mcL Absolute Neutrophils (1.80-8.00) K/mcL Sodium (133-145) mmol/L Potassium (3.3-5.1) mmol/L Chloride (96-108) mmol/L Carbon Dioxide (22-30) mmol/L Anion Gap (8.0-16.0) BUN (8-23) mg/dL Creatinine (0.6-1.1) mg/dL POC Creatinine 1.0 (0.6-1.2) mg/dL GFR Calculation Glucose (70-105) mg/dL Calcium (8.6-10.4) mg/dL Magnesium (1.6-2.5) mg/dL Total Bilirubin (0.1-1.0) mg/dL AST (<32) U/L ALT (<40) U/L Alkaline Phosphatase (39-117) U/L Troponin T (<0.03) ng/mL Total Protein (5.9-8.4) gm/dL Albumin (3.2-5.2) gm/dL Globulin (2.2-3.7) gm/dL Albumin/Globulin Ratio (1.0-2.3) Urine Color Yellow Urine Appearance Clear (Clear) Urine pH 5.5 (5.0-9.0) Ur Specific [place] 1.015 (1.000-1.035) Urine Protein Negative (Negative) mg/dL Urine Glucose (UA) Negative (Negative) mg/dL Urine Ketones Negative (Negative) mg/dL Urine Occult Blood Trace-intact A (Negative) corey/mcL Urine Nitrate Negative (Negative) Urine Bilirubin Negative (Negative) mg/dL Urine Urobilinogen Normal mg/dL Ur Leukocyte Esterase Negative (Negative) /uL Urine RBC 2 (0-3) /hpf Urine WBC 0 (0-4) /hpf Ur Squamous Epith Cells < 1 (0-4) /hpf Urine Bacteria None (0) /hpf Hyaline Casts 3 H (0-2) /lph Urine Mucus Few A (None) /hpf Ur Culture Indicated? No ED POC Tests ED POC Tests: KATLYN - SARS Antigen Negative Discharge Plan Patient/Caregiver Discharge Instructions Pt seen by PRODUCTION HARDENER/PA only: No Clinical Impression: Generalized weakness, Chronic confusion, Expressive aphasia Patient Disposition: Xfer As Inpt ([facility] [place] Condition: Fair Discharge Date/Time: 09/11/21 22:20 Discharge Comment: to room 120D at 2220
[2021-09-11 18:40] LABS: Basophils # (Auto) 0.05 K/mcL (0.00-0.30); Basophils % (Auto) 0.7 % (0.0-2.0); Eosinophils # (Auto) 0.08 K/mcL (0.00-0.70); Eosinophils % (Auto) 1.1 % (0.0-7.0); Hematocrit 40.4 % (34.1-44.9); Hemoglobin 13.3 g/dL (11.2-15.7); Mean Cell Volume 93.7 fL (80.0-100.0); Mean Corpuscular HGB Conc 32.9 g/dL (31.0-36.0); Mean Platelet Volume 11.4 fL (7.4-10.4); Monocytes # (Auto) 0.96 K/mcL (0.10-0.90); Monocytes % (Auto) 13.5 % (1.0-12.0); Neutrophils % (Auto) 46.7 % (38.0-78.0); Platelet Count 153 K/mcL (140-440); RBC 4.31 M/mcL (3.59-5.38); Red Cell Distribution Width 13.3 % (11.5-14.5); WBC 7.1 K/mcL (4.5-11.0)
[2021-09-11 18:52] LABS: ALT/SGPT 11 U/L (<40); AST/SGOT 16 U/L (<32); Albumin 3.8 gm/dL (3.2-5.2); Albumin/Globulin Ratio 1.2 (1.0-2.3); Alkaline Phosphatase 65 U/L (39-117); Bilirubin,Total 0.3 mg/dL (0.1-1.0); Blood Urea Nitrogen 33 mg/dL (8-23); Calcium 9.2 mg/dL (8.6-10.4); Carbon Dioxide 28 mmol/L (22-30); Chloride 95 mmol/L (96-108); Globulin 3.2 gm/dL (2.2-3.7); Glomerular Filtration Rate 57; Glucose 132 mg/dL (70-105)
--- NOTE | 2021-09-11 19:02 | Cat Scan Report ---
History: Stroke symptoms with expressive aphasia TECHNIQUE: The brain was imaged without contrast in axial plane at 2.5 mm intervals. Some of the images had to be repeated due to patient motion artifact. Sagittal and coronal reformats were created. The radiation exposure was limited using dose reduction technology. FINDINGS: Mild generalized atrophy is present. There is no evidence of an infarct, hemorrhage or mass effect. The ventricles are normal in size. There is no abnormal extra-axial fluid collection. There is mucus layering posteriorly in the sphenoid sinus. A 6 x 8 mm densely calcified osteoma is present in the middle third of the right ethmoid air cells. IMPRESSION: No evidence of an acute infarct Mild age-related degenerative changes Dr. Smith was called with the report Interpreted and Authenticated by: Alli Jones 09/11/21
--- NOTE | 2021-09-11 19:32 | Cat Scan Report ---
History: Acute stroke symptoms with expressive aphasia TECHNIQUE: Following injection of intravenous nonionic contrast, arterial phase images were acquired from the aortic arch to the top of the head. Sagittal and coronal reformats of the head and neck were created along with curvilinear reformatted views of both carotid arteries in the neck. The radiation exposure was limited using dose reduction technology. FINDINGS: NECK: The aortic arch is normal in caliber and there is no plaque formation. There is an aberrant right subclavian artery which arises distal to the left subclavian passes posterior to the trachea. There is no associated narrowing or atherosclerosis. The left subclavian artery is normal. Both common carotids are normal in caliber. Proximal right common carotid is moderately tortuous. The carotid bifurcations are normal and there is no thrombosis, plaque or dissection. Both proximal internal carotids are very tortuous. There is a kink in the proximal right internal carotid. This is not causing obstruction. Mid and distal portions of both internal carotids are normal in caliber with no plaque or thrombus. The vertebral arteries are also normal in caliber. Proximal portions are tortuous bilaterally. There is no stenosis or thrombosis in either vertebral. Incidentally noted is arthritis at several levels in the cervical spine, predominantly involving the facet joints. There is also mild disc space narrowing at C5-6 and 3 mm grade 1 spondylolisthesis at C4-5. Brain: Intracranial portions of both vertebral arteries are normal in caliber and symmetric. The basilar artery is normal. Posterior fossa circulation is normal. The petrous, cavernous and supraclinoid portions of both internal carotids are normal in caliber and symmetric. There is no plaque formation. The anterior and middle cerebral arteries are also normal in caliber and symmetric without evidence of stenosis or thrombosis. There is no evidence of an aneurysm or vascular malformation. No enhancing lesion is present. IMPRESSION: Normal arterial circulation in the head and neck without evidence of arterial stenosis or thrombosis. Tortuous vessels in both sides of the neck Aberrant right subclavian artery Dr. Castro was called with the report Interpreted and Authenticated by: Alli Jones 09/11/21
[2021-09-11 20:29] LABS: Appearance,Urine Clear (Clear); Bilirubin,Urine Negative (Negative); Color,Urine Yellow; Culture Indicated,Urine No; Glucose,Urine (UA) Negative (Negative); Ketones,Urine Negative (Negative); Leukocyte Esterase,Urine Negative /uL (Negative); Mucus,Urine FEW /hpf; Nitrate,Urine Negative (Negative); PH,Urine 5.5 (5.0-9.0); Protein,Urine Negative (Negative); Specific Gravity,Urine 1.015 (1.000-1.035); Urine Blood Trace-intact ery/mcL (Negative); Urine Hyaline Cast 3 /lph (0-2); Urine RBC 2 /hpf (0-3); Urine Squamous Epithelial Cell < 1 /hpf (0-4); Urine WBC 0 /hpf (0-4); Urobilinogen,Urine Normal
--- NOTE | 2021-09-11 21:39 | Internal Med History&Physical ---
HPI History of Present Illness Patient information: Note initiated : 09/11/21 at 9:30 pm Service Date, if different from initiated Date: [] Patient: Jessie Khan a 71 y/o F admitted on for weakness. Chief Complaint: [] History of present illness: Ms. Khan is a 71 year old F Presents the ED with expressive aphasia that per daughter was most noticeable today at noon but seemed patient had some problems with this yesterday as well. She also been weak for a couple weeks. She is given a course of Keflex for lower extremity cellulitis. She does have chronic venous stasis changes bilateral lower extremities Her daughter says her memory has been worsening over the past couple months. She was evaluated in the ED which included a CT head neck which was unremarkable. CT of the brain showed mild generalized atrophy. Urinalysis with some hyaline casts. Chemistry indicative of some volume depletion. Patient denies any headache fever chills nausea vomiting chest pain stomach pain diarrhea. Review of Systems: Pertinent positives as above denies headache/fever/chills/nausea/vomiting/chest or abdominal pain/cough/dyspnea/diarrhea. Remaining 10 point review of system reviewed negative PFSH PFSH All Active Problems (Updated 09/11/21 @ 20:49 by Roberto Carlos Castro DO) Atrial fibrillation (Acute) Pedal edema (Acute) Bilateral lower extremity edema (Acute) Atrial fibrillation with RVR (Acute) Generalized weakness (Acute) Chronic confusion (Acute) Expressive aphasia (Acute) MEDS/ALLERGIES Home Medications and Allergies Home Medications Medication Instructions Recorded Confirmed Type furosemide 20 mg tablet 40 mg PO QAM 10/26/19 09/11/21 History hydrocodone 5 mg-acetaminophen 325 1 - 2 tab PO Q6HP PRN 10/26/19 09/11/21 History mg tablet potassium chloride 20 mEq 20 meq PO QAM 10/26/19 09/11/21 History tablet,extended release(part/cryst) mupirocin 2 % topical ointment 1 dose TOPICAL BID 10/27/19 09/11/21 History metoprolol succinate 50 mg 100 mg PO DAILY #30 tab.xl.24h 10/31/19 Rx tablet,extended release 24 hr lisinopril 20 1 tab PO QDAY 09/11/21 09/11/21 History mg-hydrochlorothiazide 12.5 mg tablet trazodone 100 mg tablet 2 tab PO HS 09/11/21 09/11/21 History Allergies Allergy/AdvReac Type Severity Reaction Status Date / Time Sulfa (Sulfonamide Allergy Severe Swelling Verified 09/11/21 17:44 Antibiotics) of Lip/Tongue/Throat EXAM Constitutional Vitals: Temp Pulse Resp BP Pulse Ox 97.9 F 53 L 16 122/56 96 09/11/21 19:26 09/11/21 17:52 09/11/21 21:05 09/11/21 21:05 09/11/21 21:05 Exam: General: Alert, Awake, No acute Distress, obese Eyes/N/T: EOMI, PERRL, Head/Neck: neck supple, normocephalic atraumatic CV: RRR, No murmurs, normal s1/s2 Pulm: Clear b/l, no wheezing/rhonchi/rales Abd: soft, nontender, +BS x4 Ext: no clubbing/cyanosis, b/l LE venous stasis changes Neuro: Alert, difficulty in word finding, moves all extremities, CN 2-12 grossly intact, symmetrical strength b/l upper/lower, sensations intact b/l upper/lower, face symmetrical. Skin: warm/dry DATA Data Completed and Pending Labs: Labs from last 24 hours 09/11/21 09/11/21 09/11/21 19:24 18:29 17:59 WBC RBC Hgb Hct MCV MCH MCHC RDW Plt Count MPV Neut % (Auto) Lymph % (Auto) [place] % (Auto) Eos % (Auto) Baso % (Auto) Lymph # (Auto) [place] # (Auto) Eos # (Auto) Baso # (Auto) Absolute Neutrophils Sodium Potassium Chloride Carbon Dioxide Anion Gap BUN Creatinine POC Creatinine 1.0 GFR Calculation Glucose Calcium Magnesium Total Bilirubin AST ALT Alkaline Phosphatase Troponin T < 0.01 Total Protein Albumin Globulin Albumin/Globulin Ratio Urine Color Yellow Urine Appearance Clear Urine pH 5.5 Ur Specific [place] 1.015 Urine Protein Negative Urine Glucose (UA) Negative Urine Ketones Negative Urine Occult Blood Trace-intact A Urine Nitrate Negative Urine Bilirubin Negative Urine Urobilinogen Normal Ur Leukocyte Esterase Negative Urine RBC 2 Urine WBC 0 Ur Squamous Epith Cells < 1 Urine Bacteria None Hyaline Casts 3 H Urine Mucus Few A Ur Culture Indicated? No 09/11/21 09/11/21 17:59 17:59 WBC 7.1 RBC 4.31 Hgb 13.3 Hct 40.4 MCV 93.7 MCH 30.9 MCHC 32.9 RDW 13.3 Plt Count 153 MPV 11.4 H Neut % (Auto) 46.7 Lymph % (Auto) 38.0 [place] % (Auto) 13.5 H Eos % (Auto) 1.1 Baso % (Auto) 0.7 Lymph # (Auto) 2.70 [place] # (Auto) 0.96 H Eos # (Auto) 0.08 Baso # (Auto) 0.05 Absolute Neutrophils 3.32 Sodium 133 Potassium 4.0 Chloride 95 L Carbon Dioxide 28 Anion Gap 10.0 BUN 33 H Creatinine 1.0 POC Creatinine GFR Calculation 57 Glucose 132 H Calcium 9.2 Magnesium 2.2 Total Bilirubin 0.3 AST 16 ALT 11 Alkaline Phosphatase 65 Troponin T Total Protein 7.0 Albumin 3.8 Globulin 3.2 Albumin/Globulin Ratio 1.2 Urine Color Urine Appearance Urine pH Ur Specific [place] Urine Protein Urine Glucose (UA) Urine Ketones Urine Occult Blood Urine Nitrate Urine Bilirubin Urine Urobilinogen Ur Leukocyte Esterase Urine RBC Urine WBC Ur Squamous Epith Cells Urine Bacteria Hyaline Casts Urine Mucus Ur Culture Indicated? A/P Narrative A/P Narrative: A: *Strokelike symptoms (expressive aphasia): -CTA head/neck unremarkable -ABCD=4 *Memory deficits: 2/2 above vs MCI or early dementia *Volume depletion: *Afib: Was on Xarelto but was stopped about a year ago for bleeding d/t severe prolapsed uterus. on BB *h/o systolic/diastolic CHF & mod MR/TR: on diuretics/BB/ACEI *HTN: on ACEI/BB *Chronic pain(knee): *Obesity, morbid: BMI 61 *Venous stasis LE's: P: -MRI brain -IVF -hold BP meds for now -hold diuretics -lipid panel - -PT/OT -CM for placement needs -ppx: Lovenox Time Spent With Patient Time: Total time spent is greater than 50% in coordination of care (as documented) at patient's floor/unit and/or counseling patient:
[2021-09-11] MEDS ORDERED: SENNOSIDES 1 TABLET PO PRN (22:31)
[2021-09-11] MEDS ORDERED: POTASSIUM CHLORIDE 40 MEQ in DEXTROSE 5% IN WATER 500 ML IV PRN (22:31)
[2021-09-11] MEDS ORDERED: 0.9 % SODIUM CHLORIDE 1,000 ML IV SCH (22:31)
[2021-09-11] MEDS ORDERED: IPRATROPIUM/ALBUTEROL 3 ML AMPUL.NEB NEB PRN (22:31)
[2021-09-11] MEDS ORDERED: POTASSIUM CHLORIDE 20 MEQ TABLET PO PRN ×2 (22:31)
[2021-09-11] MEDS ORDERED: METOPROLOL TARTRATE 5 MG/5 ML VIAL IV PRN (22:31)
[2021-09-11] MEDS ORDERED: MAGNESIUM SULFATE 2 GM/50 ML BAG IV PRN (22:31)
[2021-09-11] MEDS ORDERED: POLYETHYLENE GLYCOL 3350 17 GM PACKET PO PRN (22:31)
[2021-09-11] MEDS ORDERED: ONDANSETRON 4 MG/2 ML VIAL IV PRN (22:31)
[2021-09-11] MEDS ORDERED: ACETAMINOPHEN 325 MG TABLET PO PRN (22:31)
[2021-09-11] MEDS: 0.9 % SODIUM CHLORIDE 10 ML SYRINGE IV SCH (22:37)
[2021-09-11] MEDS: HYDROcodone/APAP 5/325MG TABLET PO PRN (22:51)
[2021-09-11] MEDS ORDERED: HYDROcodone/APAP 5/325MG TABLET PO ONE (22:54)
[2021-09-12] MEDS: 0.9 % SODIUM CHLORIDE 10 ML SYRINGE IV SCH ×4 (05:59→23:14)
[2021-09-12 07:21] LABS: ALT/SGPT 8 U/L (<40); AST/SGOT 15 U/L (<32); Albumin 3.4 gm/dL (3.2-5.2); Albumin/Globulin Ratio 1.1 (1.0-2.3); Alkaline Phosphatase 58 U/L (39-117); Bilirubin,Direct < 0.2 mg/dL (0-0.3); Bilirubin,Total 0.5 mg/dL (0.1-1.0); Blood Urea Nitrogen 28 mg/dL (8-23); Calcium 8.9 mg/dL (8.6-10.4); Carbon Dioxide 26 mmol/L (22-30); Chloride 101 mmol/L (96-108); Glomerular Filtration Rate 74; Glucose 92 mg/dL (70-105); HDL Cholesterol 46 mg/dL (>40); LDL Cholesterol,Calculated 28 mg/dL (<100); Lactate Dehydrogenase 131 U/L (135-225); Non-HDL Cholesterol 40 mg/dL (<130); Phosphorous 3.4 mg/dL (2.5-4.5); Triglycerides 62 mg/dL (<150)
--- NOTE | 2021-09-12 07:47 | XRay Report ---
HISTORY: Increased weakness and confusion FINDINGS: The heart is mild to moderately enlarged. This has remained stable since 10/28/19. There is no congestive heart failure or pleural effusion. The lungs are clear. No acute abnormality has developed. IMPRESSION: Stable cardiomegaly. The chest is otherwise normal. Interpreted and Authenticated by: Alli Jones 09/12/21
[2021-09-12] MEDS ORDERED: 0.9 % SODIUM CHLORIDE 500 ML IV ONE (08:33)
--- NOTE | 2021-09-12 08:35 | Internal Med Progress Note ---
SUBJECTIVE Subjective Patient information: Note initiated : 09/12/21 at 8:29 am Service Date, if different from initiated Date: [] Patient: Jessie Khan a 71 y/o F admitted on 09/11/21 for weakness. Chief Complaint: [] Interval history: History of present illness: Ms. Khan is a 71 year old F Presents the ED with expressive aphasia that per daughter was most noticeable today at noon but seemed patient had some problems with this yesterday as well. She also been weak for a couple weeks. She is given a course of Keflex for lower extremity cellulitis. She does have chronic venous stasis changes bilateral lower extremities Her daughter says her memory has been worsening over the past couple months. She was evaluated in the ED which included a CT head neck which was unremarkable. CT of the brain showed mild generalized atrophy. Urinalysis with some hyaline casts. Chemistry indicative of some volume depletion. Patient denies any headache fever chills nausea vomiting chest pain stomach pain diarrhea. 3/3 Patient feeling better. Speech improved. Still little slow in speaking but clear and much improved. Patient feels a little "jittery", may developing some essential tremors like her sister. Unable to perform MRI due to patient body habitus, will treat as stroke. Review of Systems: denies headache/fever/chills/nausea/vomiting/chest or abdominal pain/cough/dyspnea/diarrhea. Otherwise see above. Constitutional Vitals: Vital Signs Temp Pulse Resp BP Pulse Ox 99.1 F H 56 L 13 126/74 95 09/12/21 08:01 09/12/21 08:08 09/12/21 06:01 09/12/21 08:01 09/12/21 08:08 Period Temp Pulse Resp BP Sys/Palmer Pulse Ox Last 24 Hr 97.9 F-100.2 F 42-149 11-23 99-154/47-136 91-100 Intake and Output 09/11/21 09/12/21 09/12/21 21:59 05:59 13:59 Output Total 25 550 Balance -25 -550 Weight 142.428 kg 142.428 kg Intake & Output: Intake & Output 09/11/21 09/12/21 09/12/21 21:59 05:59 13:59 Output Total 25 550 Balance -25 -550 Weight 142.428 kg 142.428 kg Output: Void Amount 25 550 Fem Cath 25 Other: Urine Appearance Clear Fem Cath Clear Urine Color Light Tessie Fem Cath Bright Yellow Urine Odor Fem Cath Normal Exam: General: Alert, Awake, No acute Distress, obese Eyes/N/T: EOMI, Head/Neck: neck supple, CV: RRR, No murmurs, Pulm: Clear b/l, no wheezing/rhonchi/rales Abd: soft, nontender, +BS x4 Ext: no clubbing/cyanosis, b/l LE venous stasis changes Neuro: Alert, speech more clear and more easily finding words, moves all extremities, face symmetrical. Skin: warm/dry OBJ DATA Labs CBC & Chem 7: 09/11/21 17:59 09/12/21 05:38 Labs: Abnormal Lab Results 09/12/21 09/11/21 09/11/21 05:38 19:24 17:59 MPV Monroe % (Auto) Monroe # (Auto) Chloride 95 L BUN 28 H 33 H Glucose 132 H Lactate Dehydrogenase 131 L Urine Occult Blood Trace-intact A Hyaline Casts 3 H Urine Mucus Few A 09/11/21 17:59 MPV 11.4 H Monroe % (Auto) 13.5 H Monroe # (Auto) 0.96 H Chloride BUN Glucose Lactate Dehydrogenase Urine Occult Blood Hyaline Casts Urine Mucus Meds: Medications Acetaminophen (Acetaminophen 325 Mg Tablet) 650 mg PO Q6HP PRN; Protocol PRN Reason: Per Pain Protocol/Fever > 101 Last Admin: 09/12/21 06:53 Dose: 650 mg Documented by: Hydrocodone Bitart/Acetaminophen (Hydrocodone/Apap 5/325mg Tablet) 1 - 2 tab PO Q6HP PRN; Protocol PRN Reason: Pain Last Admin: 09/11/21 22:51 Dose: 2 tab Documented by: Albuterol/Ipratropium (Ipratropium/Albuterol 3 Ml Ampul.Neb) 3 ml NEB Q4HP PRN PRN Reason: Shortness Of Breath Docusate Sodium (Docusate Sodium 100 Mg Capsule) 100 mg PO BID ABBE Enoxaparin Sodium (Enoxaparin 40 Mg/0.4 Ml Syringe) 40 mg SQ BID ABBE Potassium Chloride 40 meq/ (Dextrose) 520 mls @ 130 mls/hr IV UD PRN PRN Reason: Potassium < 3 Magnesium Sulfate (Magnesium Sulfate) 2 gm in 50 mls @ 50 mls/hr IV UD PRN PRN Reason: Magnesium </= 1.6 Sodium Chloride (Sodium Chloride 0.9%) 1,000 mls @ 100 mls/hr IV .Q10H [facility] Stop: 09/12/21 08:30 Last Admin: 09/11/21 22:37 Dose: 100 mls/hr Documented by: Melatonin (Melatonin 3 Mg Tablet) 3 mg PO QHS [facility] Metoprolol Tartrate (Metoprolol Tartrate 5 Mg/5 Ml Vial) 5 mg IV Q2HP PRN PRN Reason: Tachyarrhythmias HR>110 Ondansetron HCl (Ondansetron 4 Mg/2 Ml Vial) 4 mg IV Q4HP PRN PRN Reason: Nausea And Vomiting Polyethylene Glycol (Polyethylene Glycol 3350 17 Gm Packet) 17 gm PO DAILYP PRN PRN Reason: Constipation Potassium Chloride (Potassium Chloride 20 Meq Tablet) 40 meq PO UD PRN PRN Reason: Potssium is 3-3.5 Potassium Chloride (Potassium Chloride 20 Meq Tablet) 40 meq PO UD PRN PRN Reason: Potassium < 3 Senna (Sennosides 1 Tablet) 2 tab PO DAILYP PRN PRN Reason: Constipation Sodium Chloride (0.9 % Sodium Chloride 10 Ml Syringe) 10 ml IV Q8 [facility] Last Admin: 09/12/21 05:59 Dose: Not Given Documented by: Trazodone HCl (Trazodone Hcl 100 Mg Tablet) 200 mg PO HS ABBE A/P Narrative A/P Narrative: A: *Stroke-like symptoms (expressive aphasia): -CTA head/neck unremarkable -ABCD=4 *Memory deficits: 2/2 above vs MCI or early dementia *Volume depletion: *Afib: Was on Xarelto but was stopped about a year ago for bleeding d/t severe prolapsed uterus. on BB *h/o systolic/diastolic CHF & mod MR/TR: on diuretics/BB/ACEI *HTN: on ACEI/BB *Chronic pain(knee): *Obesity, morbid: BMI 61 *Venous stasis LE's: P: -unable to perform MRI brain d/t body habitus -gentle IVF -restart BP meds gradually in AM -hold diuretics -ASA/Statin -clarify home meds (BB, hold or decrease dose d/t bradycardia) -PT/OT -CM for placement needs -ppx: Lovenox Time Spent With Patient Time: Total time spent is greater than 50% in coordination of care (as documented) at patient's floor/unit and/or counseling patient: QUALITY Stroke Symptom Onset Unknown: No VTE Deep Vein Thrombosis/Pulmonary Embolism Present on Admission: No
[2021-09-12] MEDS: ENOXAPARIN 40 MG/0.4 ML SYRINGE SQ SCH ×2 (09:21→20:44)
[2021-09-12] MEDS: DOCUSATE SODIUM 100 MG CAPSULE PO SCH ×2 (09:21→20:43)
[2021-09-12] MEDS: ASPIRIN 81 MG TAB.CHEW PO SCH (09:21)
[2021-09-12] MEDS ORDERED: hydrOXYzine 25 MG TABLET PO ONE (11:09)
[2021-09-12] MEDS ORDERED: hydrOXYzine 25 MG TABLET PO PRN (11:09)
--- NOTE | 2021-09-12 12:19 | Discharge Summary ---
Discharge Provider Provider Patient information: Note initiated : 09/12/21 at 12:15 pm Service Date, if different from initiated Date: [] Patient: Jessie Khan 71 y/o F admitted on 09/11/21 for weakness. Chief Complaint: [] Date of admission: 09/11/21 22:12 Discharge date: 09/13/21 Primary care physician: Yvonne Leonardo Consults: 09/11/21 Consult to Physician [CONS] Stat Comment: Consulting Provider: Logan Dyson Reason For Exam: Physician to Consult Discharge Meds Discharge Medications Home Medications furosemide 20 mg tablet 40 mg PO QAM 10/26/19 [History Confirmed 09/12/21 Last Taken 10/26/19 08:00] hydrocodone 5 mg-acetaminophen 325 mg tablet 5 - 325 tab PO Q6HP PRN 10/26/19 [History Confirmed 09/12/21 Last Taken 10/25/19 21:00] potassium chloride 20 mEq tablet,extended release(part/cryst) 20 meq PO QAM 10/26/19 [History Confirmed 09/12/21 Last Taken Unknown] mupirocin 2 % topical ointment 1 dose TOPICAL BID 10/27/19 [History Confirmed 09/12/21 Last Taken 10/24/19 20:00] lisinopril 20 mg-hydrochlorothiazide 12.5 mg tablet 1 tab PO QDAY 09/11/21 [History Confirmed 09/12/21 Last Taken Unknown] trazodone 100 mg tablet 2 tab PO HS 09/11/21 [History Confirmed 09/12/21 Last Taken Unknown] atorvastatin 20 mg tablet 10 mg PO HS #30 tab 09/12/21 [Rx Last Taken Unknown] rivaroxaban 20 mg tablet (Xarelto) 20 mg PO QDAY #30 tab 09/13/21 [Rx Last Taken Unknown] sotalol 160 mg tablet 80 mg PO BID #1 tab 09/13/21 [Rx Last Taken Unknown] COURSE Hospital Course Hospital course: History of present illness: Ms. Khan is a 71 year old F Presents the ED with expressive aphasia that per daughter was most noticeable today at noon but seemed patient had some problems with this yesterday as well. She also been weak for a couple weeks. She is given a course of Keflex for lower extremity cellulitis. She does have chronic venous stasis changes bilateral lower extremities Her daughter says her memory has been worsening over the past couple months. She was evaluated in the ED which included a CT head neck which was unremarkable. CT of the brain showed mild generalized atrophy. Urinalysis with some hyaline casts. Chemistry indicative of some volume depletion. Patient denies any headache fever chills nausea vomiting chest pain stomach pain diarrhea. 3/3 Patient feeling better. Speech improved. Still little slow in speaking but clear and much improved. Patient feels a little "jittery", may developing some essential tremors like her sister. Unable to perform MRI due to patient body habitus, will treat as stroke. 3/ Patient doing well stable for discharge. I discussed anticoagulation with her given her history of paroxysmal A. fib and risk of stroke. She was amenable to starting anticoagulation back as she had been on it before. And instructed to follow-up with her PCP for further determination of continuation. Patient high risk for readmission given age and comorbidities A: *Stroke-like symptoms (expressive aphasia): -CTA head/neck unremarkable *Memory deficits: 2/2 above vs MCI or early dementia *Volume depletion: *PAfib: Was on Xarelto but was stopped about a year ago for bleeding d/t severe prolapsed uterus. on BB -in sinus *h/o systolic/diastolic CHF & mod MR/TR: on diuretics/BB/ACEI *HTN: on ACEI/BB *Chronic pain(knee): *Obesity, morbid: BMI 61 *Venous stasis LE's: *Mild neurocognitive disorder: P: -unable to perform MRI brain d/t body habitus -xarelto/Statin -decrease sotolol for bradycardia -Follow-up with speech therapy outpatient for cognitive deficits Discharge diagnosis: Strokelike symptoms expressive aphasia memory deficits recently form deplet Secondary discharge diagnosis: Volume depletion paroxysmal A. fib history of systolic and diastolic heart failure with valvular disease hypertension chronic pain morbid obesity venous stasis Time Spent with Patient Time attestation: Total time spent providing and/or coordinating discharge services: Time spent: Greater than 30 minutes EXAM Constitutional Vitals: Temp Pulse Resp BP Pulse Ox 99.1 F H 50 L 13 107/74 100 09/12/21 08:01 09/12/21 10:01 09/12/21 06:01 09/12/21 10:01 09/12/21 10:01 Discharge Data Data Completed and Pending Labs on day of discharge: Labs from last 24 hours 09/12/21 09/11/21 09/11/21 05:38 19:24 18:29 WBC RBC Hgb Hct MCV MCH MCHC RDW Plt Count MPV Neut % (Auto) Lymph % (Auto) Maury % (Auto) Eos % (Auto) Baso % (Auto) Lymph # (Auto) Maury # (Auto) Eos # (Auto) Baso # (Auto) Absolute Neutrophils Sodium 136 Potassium 3.6 Chloride 101 Carbon Dioxide 26 Anion Gap 9.0 BUN 28 H Creatinine 0.8 POC Creatinine 1.0 GFR Calculation 74 Glucose 92 Uric Acid 6.0 Calcium 8.9 Phosphorus 3.4 Magnesium 2.2 Total Bilirubin 0.5 Direct Bilirubin < 0.2 GGT 13 AST 15 ALT 8 Alkaline Phosphatase 58 Lactate Dehydrogenase 131 L Troponin T Total Protein 6.4 Albumin 3.4 Globulin 3.0 Albumin/Globulin Ratio 1.1 Triglycerides 62 Cholesterol 86 LDL Cholesterol, Calc 28 Non-HDL Cholesterol 40 HDL Cholesterol 46 Urine Color Yellow Urine Appearance Clear Urine pH 5.5 Ur Specific Holcomb 1.015 Urine Protein Negative Urine Glucose (UA) Negative Urine Ketones Negative Urine Occult Blood Trace-intact A Urine Nitrate Negative Urine Bilirubin Negative Urine Urobilinogen Normal Ur Leukocyte Esterase Negative Urine RBC 2 Urine WBC 0 Ur Squamous Epith Cells < 1 Urine Bacteria None Hyaline Casts 3 H Urine Mucus Few A Ur Culture Indicated? No 09/11/21 09/11/21 09/11/21 17:59 17:59 17:59 WBC 7.1 RBC 4.31 Hgb 13.3 Hct 40.4 MCV 93.7 MCH 30.9 MCHC 32.9 RDW 13.3 Plt Count 153 MPV 11.4 H Neut % (Auto) 46.7 Lymph % (Auto) 38.0 Maury % (Auto) 13.5 H Eos % (Auto) 1.1 Baso % (Auto) 0.7 Lymph # (Auto) 2.70 Maury # (Auto) 0.96 H Eos # (Auto) 0.08 Baso # (Auto) 0.05 Absolute Neutrophils 3.32 Sodium 133 Potassium 4.0 Chloride 95 L Carbon Dioxide 28 Anion Gap 10.0 BUN 33 H Creatinine 1.0 POC Creatinine GFR Calculation 57 Glucose 132 H Uric Acid Calcium 9.2 Phosphorus Magnesium 2.2 Total Bilirubin 0.3 Direct Bilirubin GGT AST 16 ALT 11 Alkaline Phosphatase 65 Lactate Dehydrogenase Troponin T < 0.01 Total Protein 7.0 Albumin 3.8 Globulin 3.2 Albumin/Globulin Ratio 1.2 Triglycerides Cholesterol LDL Cholesterol, Calc Non-HDL Cholesterol HDL Cholesterol Urine Color Urine Appearance Urine pH Ur Specific Holcomb Urine Protein Urine Glucose (UA) Urine Ketones Urine Occult Blood Urine Nitrate Urine Bilirubin Urine Urobilinogen Ur Leukocyte Esterase Urine RBC Urine WBC Ur Squamous Epith Cells Urine Bacteria Hyaline Casts Urine Mucus Ur Culture Indicated? Discharge Plan Patient/Caregiver Discharge Instructions Activity: increase activity as tolerated Diet: Regular Diet Instructions: Aspirin (By mouth), Atorvastatin (By mouth), Transient Ischemic Attack (GEN), Aphasia (GEN) Activity Restrictions/Additional Instructions: Referral to see neurology in 3 to 10 days for follow-up possible stroke, speech difficulty. First dose of Xarelto given in the hospital do not start taking it at home until September 14. Monitor heart rate twice daily and bring log to PCP/manuscript editor to determine if you need to decrease your sotalol further. Follow-up with speech therapy outpatient for cognitive and swallowing. Prescriptions: New atorvastatin 20 mg Tablet 10 mg PO HS Qty: 30 0RF Xarelto 20 mg tablet 20 mg PO QDAY Qty: 30 0RF Rx Instructions: must administer with evening meal. start on 09/14 Continued hydrocodone-acetaminophen 1 TAB tablet 5 - 325 tab PO Q6HP PRN (Reason: Pain) 0RF Rx Instructions: 1-2 Tablets furosemide 20 MG tablet 40 mg PO QAM 0RF potassium chloride 20 MEQ tablet,ER particles/crystals 20 meq PO QAM 0RF mupirocin 1 DOSE ointment 1 dose topical BID 0RF Rx Instructions: Apply to leg wound twice daily lisinopril-hydrochlorothiazide 20-12.5 mg tablet 1 tab PO QDAY 0RF trazodone 100 mg tablet 2 tab PO HS 0RF Changed sotalol 160 mg tablet 80 mg PO BID Qty: 1 0RF Follow Up Plan Follow up with: Daya Mohan MD [Physician] - (A referral has been sent, they will call to schedule and appointment) Yvonne Leonardo ARNP [Primary Care Provider] - 09/17/21 10:00 am (Please arrive 15 minutes early) Patient Disposition: Home Health Service Prognosis: Fair Overall status at discharge: patient is progressing back to baseline Discharge Orders: Discharge Order (Routine); Ordered 09/13/21 Ordered By: Logan Dyson [facility] VTE Deep Vein Thrombosis/Pulmonary Embolism Present on Admission: No
[2021-09-12] MEDS: HYDROcodone/APAP 5/325MG TABLET PO PRN ×2 (12:59→20:45)
[2021-09-12] MEDS ORDERED: traZODone HCL 100 MG TABLET PO SCH (21:00)
[2021-09-12] MEDS ORDERED: ATORVASTATIN 20 MG TABLET PO SCH (21:00)
[2021-09-12] MEDS ORDERED: MELATONIN 3 MG TABLET PO SCH (21:00)
[2021-09-13] MEDS: 0.9 % SODIUM CHLORIDE 10 ML SYRINGE IV SCH ×2 (04:50→14:03)
--- NOTE | 2021-09-13 07:11 | EKG ---
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
--- NOTE | 2021-09-13 07:14 | EKG ---
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
[2021-09-13] MEDS: ENOXAPARIN 40 MG/0.4 ML SYRINGE SQ SCH (08:43)
[2021-09-13] MEDS: DOCUSATE SODIUM 100 MG CAPSULE PO SCH (08:43)
[2021-09-13] MEDS: ASPIRIN 81 MG TAB.CHEW PO SCH (08:43)
[2021-09-13] MEDS ORDERED: LISINOPRIL 10 MG TABLET PO SCH (09:00)
[2021-09-13] MEDS ORDERED: RIVAROXABAN 20 MG TABLET PO ONE (10:08)
== END 2021-09-13 13:40 | disposition home health service (06) ==
LOC: ICU 17:33 → ED 17:33 → ICU 22:20
PROVIDERS: ADMIT Internal Medicine; ATTEND Internal Medicine